=== PATIENT | female | born 1950 | race Caucasian/White ===

== ENCOUNTER → 2019-07-14 15:03 | Outpatient (CLI) | payer MEDICARE, SELFPAY ==
[2019-07-14 15:54] LABS: Alanine Aminotransferase 25 IU/L (9-52); Albumin 4.6 g/dL (3.5-5.0); Albumin Globulin Ratio 1.6 (1.0-2.8); Alkaline Phosphatase 73 U/L (38-126); Aspartate Aminotransferase 39 IU/L (14-36); BUN Creatinine Ratio 33.3 (6-22); Bilirubin Total 0.4 mg/dL (0.2-1.3); Blood Urea Nitrogen 20 mg/dL (7-17); Calcium 10.1 mg/dL (8.4-10.2); Carbon Dioxide 29 mmol/L (22-32); Chloride 99 mmol/L (98-107); Estimated Glomerular Filt Rate > 60.0 mL/min (>60); Globulin 2.9 g/dL (1.7-4.1); Glucose 91 mg/dL (80-110); HEMOLYSIS < 15 (0-50); Potassium 3.9 mmol/L (3.4-5.1); Sodium 139 mmol/L (137-145); Total Protein 7.5 g/dL (6.3-8.2)
[2019-07-14 16:49] LABS: Vitamin D 25 Hydroxy (D3) 43.2 ng/mL (30.0-100.0)
== END ==
PROVIDERS: PCP Physician Assistant; Visit Provider Physician Assistant
DX: G43.909 Migraine, unspecified, not intractable, without status migrainosus (principal); M81.0 Age-related osteoporosis without current pathological fracture
CPT/HCPCS: 36415; 80053; 82306

== ENCOUNTER → 2019-07-15 12:55 | Outpatient (CLI) | payer MEDICARE, SELFPAY ==
--- NOTE | 2019-07-16 15:56 | PM.PFT.1 ---
Pulmonary Function Test Referral & Results Date Patient Seen: 07/15/19 Requesting provider: Katherin Todd Results: The spirometry demonstrates an FVC of 1.83 L which is 56% of predicted. The FEV1 was measured at 1.35 L which is 55% of predicted. The FEV1/FVC ratio was 70 for which is 96% of predicted. Following the administration of bronchodilator there was a 12% improvement in FEV1 and a 55% improvement in FEF 25-75%. Lung volumes show an SVC of 1.91 L which is 62% of predicted. The diffusing capacity was measured at 17.03 which is 63% of predicted. No hemoglobin value was provided, so no correction for potential anemia could be made, if appropriate. The maximum voluntary ventilation was reduced Interpretation: This study demonstrates moderately severe obstructive lung disease with evidence of benefit following bronchodilator based in improvement in FEV1 and more significant improvement in FEF 25-75% suggesting small airway flow improvement There is also [id number] restrictive lung disease based on reduction SVC There is also significant reduction in diffusing capacity, unless patient is anemic
== END ==
PROVIDERS: PCP Physician Assistant; Visit Provider Physician Assistant
DX: R06.09 Other forms of dyspnea (principal); J98.8 Other specified respiratory disorders
CPT/HCPCS: 94060; 94726; 94729

== ENCOUNTER → 2019-07-17 11:44 | Outpatient (CLI) | payer MEDICARE, SELFPAY ==
[2019-07-17 12:59] LABS: Add Manual Diff / Slide Review NO; Basophils Absolute Auto 100 /uL (0-100); Eosinophils Absolute Auto 100 /uL (0-450); Eosinophils Percent Auto 2.6 % (2-4); Hematocrit 39.5 % (36-46); Hemoglobin 13.3 g/dL (12.0-16.0); Lymphocytes Absolute Auto 1700 /uL (1100-4500); Lymphocytes Percent Auto 29.5 % (25-40); Mean Corpuscular HGB Conc 33.6 % (30-36); Mean Corpuscular Hemoglobin 30.1 PG (26-34); Mean Corpuscular Volume 89.5 fL (80-100); Monocytes Absolute Auto 600 /uL (0-900); Monocytes Percent Auto 10.2 % (3-14); Neutrophils Absolute Auto 3300 /uL (1500-7000); Neutrophils Percent Auto 56.7 % (50-75); Platelet Count 226 X10^3/uL (150-400); Red Blood Cell Count 4.41 X10^6/uL (4.0-5.2); Red Cell Distribution Width 13.4 % (11.6-14.8); White Blood Cell Count 5.7 X10^3/uL (4.5-11.0)
[2019-07-17 14:03] LABS: HEMOLYSIS < 15 (0-50); Iron 85 ug/dL (37-170)
[2019-07-17 14:14] LABS: Percent Iron Saturation 27 % (15-50); Total Iron Binding Capacity 311 ug/dL (265-497); Transferrin 257 mg/dL (206-381)
[2019-07-17 14:36] LABS: Thyroid Stimulating Hormone 3.21 uIU/mL (0.47-4.68)
[2019-07-17 14:40] LABS: Ferritin 35.1 ng/mL (11.1-264)
[2019-07-17 14:53] LABS: Vitamin B12 546 pg/mL (239-931)
== END ==
PROVIDERS: PCP Physician Assistant; Visit Provider Physician Assistant
DX: R06.09 Other forms of dyspnea (principal); R53.83 Other fatigue
CPT/HCPCS: 36415; 82607; 82728; 83540; 83550; 84443; 85025

== ENCOUNTER → 2019-07-22 13:03 | Outpatient (CLI) | payer MEDICARE, SELFPAY ==
--- NOTE | 2019-07-22 13:07 | DI.CT.S_ITS ---
PROCEDURE: CT CHEST WO CON INDICATIONS: Abnormal PFTs; dyspnea on exertion TECHNIQUE: Noncontrast 5 mm thick sections acquired from the pulmonary apices to the posterior costophrenic angles. 1 mm lung window, 5 mm thick coronal and sagittal and 7 mm axial MIP reformats were then acquired. For radiation dose reduction, the following was used: automated exposure control, adjustment of mA and/or kV according to patient size. COMPARISON: None. FINDINGS: Image quality: Excellent. Lungs and pleura: Multiple bilateral punctate pulmonary nodules. There is a punctate right middle lobe pulmonary nodule on axial image 169 of series 3. There is a punctate right upper lobe pulmonary nodule on axial image 90 of series 3. There is a punctate pulmonary nodule in the anterior lateral right upper lobe on axial image 104 of series 3. Small filling defects within the subsegmental bronchi of the right upper lobe noted. There are hazy peripheral tree in bud pulmonary opacities of the lateral right middle lobe on axial image 220 of series 3 and of the lingula on axial image 211 of series 3. There is bibasilar atelectasis. No pleural effusions or pneumothorax. Central and peripheral airways are patent and normal in caliber. Mediastinum: Heart size is normal. No mediastinal adenopathy by size criteria. There is mild calcified plaque of the aorta. Ascending thoracic aorta measures at the upper limits of normal in size/borderline ectatic at 3.9 cm. Bones and chest wall: Right greater than left bilateral glenohumeral joint degenerative changes. There are soft tissue exophytic skin nodules of the lateral right upper quadrant of the abdomen measuring up to 1.7 cm in diameter. There are multiple subcentimeter hypoattenuating foci within the right thyroid lobe. Moderate multilevel degenerative changes of the thoracic spine noted, with mild anterior wedging of the T8 vertebral body likely secondary to chronic degenerative change or prior trauma. Abdomen: Punctate splenic calcifications are noted. IMPRESSION: 1. Hazy peripheral pulmonary opacities involving the lateral right middle lobe and lingula are concerning for potential pneumonia versus atelectasis blurred by respiratory motion. Small filling defects within the subsegmental right upper lobe bronchi are most consistent with small aspirated secretions. Clinical correlation recommended. 2. Multiple small sub-4 mm bilateral pulmonary nodules. A followup CT of the chest in 12 months is recommended to demonstrate stability. ACR Lung RADS Category 2. 3. Ascending thoracic aorta measures at the upper limits of normal in size/borderline ectatic at 3.9 cm. Attention on followup exams recommended. 4. Punctate splenic calcifications, a nonspecific finding that can be seen in the setting of chronic granulomatous disease. 5. Multiple hypoattenuating subcentimeter right thyroid nodules. Consider thyroid ultrasound if there is continued clinical concern. 6. Right upper quadrant anterior abdominal wall exophytic skin nodules. Correlation with physical exam recommended. 7. Moderate multilevel degenerative changes of the thoracic spine, with mild anterior wedging of the T8 vertebral body likely secondary to chronic degenerative change or prior trauma. Correlation with point tenderness suggested to exclude acute fracture. Dictated by: Chirag Cuenca M.D. on 07/22/2019 at 14:57 Approved by: Chirag Cuenca M.D. on 07/22/2019 at 15:32
== END ==
PROVIDERS: PCP Physician Assistant; Referring Provider Internal Medicine; Visit Provider Physician Assistant
DX: R94.2 Abnormal results of pulmonary function studies (principal); R06.09 Other forms of dyspnea; D73.89 Other diseases of spleen; E04.2 Nontoxic multinodular goiter; R91.8 Other nonspecific abnormal finding of lung field; R22.2 Localized swelling, mass and lump, trunk; M47.814 Spondylosis without myelopathy or radiculopathy, thoracic region
CPT/HCPCS: 71250

== ENCOUNTER → 2019-08-05 13:49 | Outpatient (CLI) | payer MEDICARE, SELFPAY ==
--- NOTE | 2019-08-05 13:50 | DI.ECHO.S_ITS ---
[facility]---------+ [facility] +---------+ : : [address] [place] [address] : : : : [id number] : : : : Phone: [phone] Echocardiogram Report + + :Name: TODD DOHERTY Study Date: 08/05/2019 Height: 66 in : :[facility] Weight: 140 lb : : Gender: Female BSA: 1.7 m2 : :: 1950 Age: 69 yrs BP: 132/90 mmHg: :Reason For Study: Dyspnea : : Performed By: Carolynn Padron : :Referring: TORY ROGERS : + + Interpretation Summary The left ventricle is normal in size, wall thickness, and systolic function without any focal wall motion abnormalities. The ejection fraction is estimated to be 55-60%. Diastolic parameters suggest a relaxation abnormality of the left ventricle, consistent with probable normal filling pressures. The right ventricle grossly appears normal in size with probable normal systolic function. The right ventricular systolic pressure is estimated to be at least 28 mmHg based on an estimated right atrial pressure of 3 mm Hg. The left atrium is mildly dilated. Right atrial size is normal. There is mild mitral regurgitation. There is no other significant valvular heart disease. The aortic root is normal size. Procedure: A two-dimensional transthoracic echocardiogram with color flow and Doppler was performed. The study quality was technically adequate. There is no prior echocardiogram noted for this patient. The patient was in normal sinus rhythm during the exam. Left Ventricle: The left ventricle is normal in size, wall thickness, and systolic function without any focal wall motion abnormalities. The ejection fraction is estimated to be 55-60%. Diastolic parameters suggest a relaxation abnormality of the left ventricle, consistent with probable normal filling pressures. Right Ventricle: The right ventricle grossly appears normal in size with probable normal systolic function. Atria: The left atrium is mildly dilated. Right atrial size is normal. The interatrial septum is intact with no evidence for an atrial septal defect. Mitral Valve: The mitral valve is grossly normal. There is mild mitral regurgitation. Aortic Valve: The aortic valve is trileaflet. The aortic valve opens well. There is trace aortic regurgitation. Tricuspid Valve: The tricuspid valve leaflets are thin and pliable. There is mild tricuspid regurgitation. The right ventricular systolic pressure is estimated to be at least 28 mmHg based on an estimated right atrial pressure of 3 mm Hg. Pulmonic Valve: The pulmonic valve is normal in structure and function. There is no pulmonic valvular regurgitation. There is no other significant valvular heart disease. Great Vessels: The aortic root is normal size. The dimensions of the ascending aorta are normal. The IVC is of normal diameter and collapses greater than 50% with a sniff. This suggests a low right atrial pressure of 3 mm Hg. Pericardium/ Pleura There is a trivial pericardial effusion noted. There is no pleural effusion. MMode/2D Measurements & Calculations LVIDd: 4.4 cm Ao root diam: 3.7 cm LVIDs: 2.7 cm Aortic Jxn: 3.3 cm FS: 39.1 % asc Aorta Diam: 3.4 cm EPSS: 0.45 cm Ao Arch Diam (Prox Trans): 3.2 cm IVSd: 0.70 cm LVPWd: 0.65 cm LV verdin. diameter/BSA (cm/m^2): 2.6 LV sys. diameter/BSA (cm/m^2): 1.6 LA dimension: 3.5 cm RA long axis: 4.0 cm LA A2 area: 22.7 cm2 RA area: 15.4 cm2 LA A4 area: 18.8 cm2 RA vol: 50.2 ml LA length (vol): 5.3 cm RA : 29.2 ml/m2 LA vol: 68.0 ml IVC diam: 1.4 cm LA vol index: 39.6 ml/m2 RVDd major: 6.1 cm RVD1 (basal): 4.4 cm RVD2 (mid): 3.5 cm Doppler Measurements & Calculations Ao V2 max: 149.7 cm/sec MV E max hakan: 73.3 cm/sec Ao V2 mean: 91.9 cm/sec MV A max hakan: 99.7 cm/sec Ao max P.0 mmHg MV E/A: 0.74 Ao mean P.2 mmHg Med Peak E' Hakan: 4.2 cm/sec Ao V2 VTI: 34.1 cm E/E' med: 17.4 Lat Peak E' Hakan: 5.4 cm/sec E/E' lat: 13.6 E/e' average: 15.5 MV dec time: 0.24 sec MV P1/2t: 69.3 msec TR max hakan: 250.5 cm/sec MV P1/2t max hakan: 72.8 cm/sec TR max P.1 mmHg MVA(P1/2t): 3.2 cm2 PA V2 max: 75.1 cm/sec PA V2 mean: 46.6 cm/sec PA mean P.0 mmHg PA Accel Time: 0.19 sec Reading Physician:05:25 PM
== END ==
PROVIDERS: PCP Physician Assistant; Visit Provider Physician Assistant
DX: I08.1 Rheumatic disorders of both mitral and tricuspid valves (principal); R06.00 Dyspnea, unspecified; R94.2 Abnormal results of pulmonary function studies
CPT/HCPCS: 93306

== ENCOUNTER → 2019-09-13 15:07 | Outpatient (CLI) | payer MEDICARE, SELFPAY ==
--- NOTE | 2019-09-13 15:09 | DI.RAD.S_ITS ---
PROCEDURE: XR CERVICAL SPINE 2V OR 3V INDICATIONS: Neck pain with intermittent parasthesia of index fingers TECHNIQUE: 3 view(s) of the cervical spine were acquired. COMPARISON: None. FINDINGS: Bones: No fractures or dislocations to the C7 level. The lateral masses of C1 appear intact on the odontoid view. No suspicious bony lesions. Diffuse cervical spondylosis and mild diffuse disc space narrowing. Multilevel facet arthropathy levocurvature of the cervical spine Soft tissues: No prevertebral soft tissue swelling. IMPRESSION: Levocurvature Diffuse cervical spondylosis and facet arthropathy Dictated by: Rip Corral M.D. on 09/13/2019 at 17:15 Approved by: Rip Corral M.D. on 09/13/2019 at 17:16
--- NOTE | 2019-09-13 15:09 | DI.RAD.S_ITS ---
PROCEDURE: XR LUMBAR SPINE 2-3V INDICATIONS: LBP with parasthesia of great toes for several months TECHNIQUE: 3 views of the lumbar spine were acquired. COMPARISON: None. FINDINGS: Bones: No fracture or focal osseous destruction. Levoscoliosis. Trace retrolisthesis of L1 on L2, L2 on L3 and L3 on L4. Mild diffuse narrowing of the lumbar disc spaces. Soft tissues: Overlying bowel gas pattern is normal. No suspicious soft tissue calcifications. IMPRESSION: Levoscoliosis Diffuse mild lumbar spondylosis and facet arthropathy Multilevel lumbar spondylolistheses as above Dictated by: Rip Corral M.D. on 09/13/2019 at 17:16 Approved by: Rip Corral M.D. on 09/13/2019 at 17:18
== END ==
PROVIDERS: PCP Physician Assistant; Visit Provider Physician Assistant
DX: M54.5 Low back pain (principal); M54.2 Cervicalgia; M47.812 Spondylosis without myelopathy or radiculopathy, cervical region; M47.816 Spondylosis without myelopathy or radiculopathy, lumbar region; M41.86 Other forms of scoliosis, lumbar region; M43.16 Spondylolisthesis, lumbar region; R20.2 Paresthesia of skin
CPT/HCPCS: 72040; 72100

== ENCOUNTER → 2019-09-21 10:40 | Outpatient (CLI) | payer MEDICARE, SELFPAY ==
--- NOTE | 2019-09-21 10:42 | DI.MRI.S_ITS ---
PROCEDURE: MR LUMBAR SPINE WO CON INDICATIONS: LBP with parasthesia of both great toes TECHNIQUE: Noncontrast sagittal T1 spin echo and T2 fast echo, sagittal STIR, axial T1 and T2 fast spin echo through the lumbar spine. In cases with scoliosis, additional coronal T2 fast spin echo may be performed. COMPARISON: [facility], CR, XR LUMBAR SPINE 2-3V, 09/13/2019, 15:11. FINDINGS: Image quality: Excellent. Alignment and Curvature: There is normal bony alignment. Bone Marrow: There is a Schmorl's node in the superior endplates of L1 and L3. No acute vertebral body compression fractures. Spinal Cord: Conus medullaris terminates at the T12-L1 level. Visualized cord demonstrates normal signal and size. Paraspinous Soft Tissues: No paravertebral masses. L1-L2: Mild loss of disc height and disc desiccation. There is diffuse posterior disc bulge. The central canal is patent. Mild left foraminal stenosis. No right foraminal stenosis. No definitive nerve root impingement. L2-L3: Preserved disc height. Mild disc desiccation. There is diffuse posterior disc bulge. The central canal is patent. No foraminal stenosis. No definitive nerve root impingement. L3-L4: Mild loss of disc height and disc desiccation. There is diffuse posterior disc bulge. The central canal is patent. Mild bilateral foraminal stenosis. No definitive nerve root impingement. L4-L5: Mild loss of disc height and disc signal. There is mild posterior disc bulge. The central canal is patent. Mild bilateral foraminal stenosis. No definitive nerve root impingement. L5-S1: Preserved disc height and disc signal. There is mild posterior disc bulge. Mild bilateral facet arthropathy. The central canal is patent. No foraminal stenosis. No definitive nerve root impingement. IMPRESSION: 1. Multilevel degenerative disc disease and facet arthropathy as described. 2. No central canal stenosis. 3. Mild foraminal stenosis at several levels as described. Dictated by: Wilner Monroy M.D. on 09/21/2019 at 14:12 Approved by: Wilner Monroy M.D. on 09/21/2019 at 14:30
--- NOTE | 2019-09-21 10:42 | DI.MRI.S_ITS ---
PROCEDURE: MR CERVICAL SPINE WO CON INDICATIONS: Chronic neck pain with parasthesia of both index fingers TECHNIQUE: Noncontrast sagittal T1 spin echo and T2 fast spin echo, sagittal STIR, foraminal oblique sagittal T2 fast spin echo, and axial gradient echo or T2 fast spin echo through the cervical spine. COMPARISON: [facility], CR, XR CERVICAL SPINE 2V OR 3V, 09/13/2019, 15:11. FINDINGS: Image quality: Excellent. Alignment and Curvature: There is mild scoliosis. Grade 1 anterolisthesis of C3 on C4. Bone Marrow: Degenerative endplate signal changes. Spinal Cord: Visualized spinal cord has normal size and signal. No cerebellar tonsillar herniation. Paraspinous Soft Tissues: No paravertebral masses. Prevertebral soft tissues are normal in thickness. C2-C3: Normal appearance. C3-C4: Mild loss of disc height and disc desiccation. There is diffuse posterior disc bulge and disc osteophyte complex. The central canal is mildly narrowed. Mild bilateral foraminal stenosis. C4-C5: Mild loss of disc height and disc desiccation. There is diffuse posterior disc bulge and disc osteophyte complex. There is uncovertebral hypertrophy. The central canal is mildly narrowed. Mild bilateral foraminal stenosis. C5-C6: Egto-pf-yabvnrky loss of disc height and disc desiccation. There is diffuse posterior disc bulge and disc osteophyte complex. The central canal is mildly narrowed. Mild bilateral foraminal stenosis. C6-C7: [id number] loss of disc height and disc desiccation. There is diffuse posterior disc bulge and disc osteophyte complex. The central canal is mildly narrowed. No foraminal stenosis. C7-T1: Normal appearance. IMPRESSION: 1. Multilevel degenerative disc disease and facet arthropathy as described. 2. Mild central canal stenosis at C3-C4, C4-C5, C5-C6 and C6-C7. 3. Mild foraminal stenosis at several levels as described. 4. Scoliosis. Dictated by: Wilner Monroy M.D. on 09/21/2019 at 13:02 Approved by: Wilner Monroy M.D. on 09/21/2019 at 17:58
== END ==
PROVIDERS: PCP Physician Assistant; Visit Provider Physician Assistant
DX: M54.5 Low back pain (principal); M51.36 Other intervertebral disc degeneration, lumbar region; M51.37 Other intervertebral disc degeneration, lumbosacral region; M47.817 Spondylosis without myelopathy or radiculopathy, lumbosacral region; M48.061 Spinal stenosis, lumbar region without neurogenic claudication; M50.31 Other cervical disc degeneration, high cervical region; M47.812 Spondylosis without myelopathy or radiculopathy, cervical region; M48.02 Spinal stenosis, cervical region; M41.9 Scoliosis, unspecified; R20.2 Paresthesia of skin
CPT/HCPCS: 72141; 72148

== ENCOUNTER 2019-12-03 20:21 | Emergency (ER) | payer MEDICARE, SELFPAY ==
[2019-12-03 20:33] VITALS: BP 165/98; PULSE 62; RESP 18; TEMP 36.8; O2SAT 99
--- NOTE | 2019-12-03 20:47 | ED_ITS ---
HPI - Abdominal Pain General Chief Complaint: Abdominal Pain Stated Complaint: SEVERE ABD PAIN Time Seen by Provider: 12/03/19 20:46 Source: patient and family Mode of arrival: Wheelchair Limitations: no limitations History of Present Illness HPI narrative: This is a 69-year-old female comes emergency department with complaint of abdominal pain patient states that yesterday and the day before she had diarrhea it was not black or bloody. She developed abdominal pain sort of in the lower abdomen but also radiating around to the back. It is on both sides. She has had nausea and had 1 episode of vomiting. She has not had fevers or chills. She states she is quite uncomfortable. The abdominal pain developed after the diarrhea. She takes propranolol for migraine prophylaxis. She has been diagnosed with restrictive lung disease and states she has stopped the albuterol and Advair because is not the appropriate medications this is a brand new diagnosis. She is also on medication for osteoporosis. She denies any abdominal surgeries. She denies any allergies to medications. No tobacco, occasional alcohol no illicit. She is accompanied by her . Her primary care was soon Perez but she has since the left and she is following with the same office. Related Data Home Medications Medication Instructions Recorded Confirmed Calcium 600 mg 1 tab PO BID 04/14/19 09/13/19 LUTEIN 1 cap PO DAILY 04/14/19 09/13/19 multivitamin 1 tab PO DAILY 04/14/19 09/13/19 fluticasone propionate 230 2 puff INHALATION BID 08/30/19 09/13/19 mcg-salmeterol 21 mcg/actuation HFA inhaler fluticasone propionate 50 2 spray NASAL DAILY 08/30/19 09/13/19 mcg/actuation nasal spray,suspension loratadine 10 mg tablet 10 mg PO DAILY 08/30/19 09/13/19 Previous Rx's Medication Instructions Recorded alendronate 70 mg tablet 70 mg PO QWEEK #12 tab 07/07/19 propranolol 20 mg tablet 20 mg PO BID #180 tab 07/07/19 albuterol sulfate 90 mcg/actuation 2 puff INHALATION Q4-6H PRN #18 07/20/19 aerosol inhaler gram diazepam 5 mg tablet 5 mg PO ONCE PRN #2 tab 09/14/19 nitrofurantoin monohyd/m-cryst 100 mg PO BID #10 cap 12/03/19 [Macrobid] Allergies Allergy/AdvReac Type Severity Reaction Status Date / Time No Known Drug Allergies Allergy Verified 09/13/19 14:18 Review of Systems Review of Systems ROS Unobtainable: All systems reviewed & are unremarkable except as noted in HPI and below Patient History Medical History Actinic keratosis (Chronic ~2014) Chicken pox (Resolved) Fractures (Resolved) Headache (Chronic ~1968) Herpes (Resolved ~1969) Measles (Resolved) Migraines (Chronic ~1977) Mumps (Resolved) Osteoarthritis (Chronic ~2016) Osteopenia (Chronic) Osteoporosis (Chronic ~2005) Shoulder pain (Chronic ~2015) Vision disorder (Chronic) Surgical History Anesthesia (Resolved) History of tonsillectomy (Resolved ~1953) Family History (Updated 05/17/19 @ 17:15 by Stacy Jiménez) Father History of heart disease Mother Cancer Grandfather History of heart disease Grandmother Hypertension Grandfather Cancer Grandmother Cerebral arteriosclerosis Social History Smoking Status: Former smoker Tobacco: How many years used: 20 (on and off) second hand exposure: No alcohol intake: current (one glass of wine maybe 3 to 4 times a month.) substance use type: does not use Smoking Status: Former smoker alcohol intake frequency: a few times a month Substance Use Type: does not use Exam Narrative Exam Narrative: GENERAL: Alert and oriented x three, thin, well-appearing elderly female in moderate distress HEENT: Head normocephalic, atraumatic, EOMI, pupils reactive, face symmetric, moist mucous membranes NECK: Supple, full range of motion CARDIOVASCULAR: Regular rate and rhythm without murmurs, rubs or gallops. RESPIRATORY: Breath sounds equal bilaterally, no wheezes rales or rhonchi. ABDOMEN: Soft, nontender to palpation but patient does appear uncomfortable, nondistended. Normoactive bowel sounds all 4 quadrants. No guarding or rebound, rigidity, no mass : No CVA tenderness EXTREMITIES: Normal range of motion, no clubbing or edema. Neurovascularly intact NEUROLOGICAL: Cranial nerves II through XII grossly intact. Moving all extremities SKIN: Warm, dry, no petechiae, no rashes or lesions. Initial Vital Signs Initial Vital Signs: Vital Signs Temperature 98.2 F 12/03/19 20:33 Pulse Rate 62 12/03/19 20:33 Respiratory Rate 18 12/03/19 20:33 Blood Pressure 165/98 H 12/03/19 20:33 Pulse Oximetry 99 12/03/19 20:33 Course Orders Ordered: ED Orders 12/03/19 21:00 Complete Blood Count AUTO DIFF Stat Comprehensive Metabolic Panel Stat Lipase Stat 12/03/19 21:06 Urine Culture Stat Urine Microscopic Stat 12/03/19 21:21 CT abdomen pelvis w con Stat Discontinued Medications Hydrocodone Bitart/Acetaminophen (Vicodin 5/325 Prepack) 1 bottle MISC SEEINSTR ONE Stop: 12/03/19 23:22 Last Admin: 12/03/19 23:43 Dose: 1 bottle Documented by: CHARLY Sodium Chloride (Normal Saline 0.9%) 1,000 mls @ 150 mls/hr IV CONT SERGIO Last Infusion: 12/03/19 23:30 Dose: 0 mls/hr Documented by: Admin: 12/03/19 21:06 Dose: 150 mls/hr Documented by: AVERY Ketorolac Tromethamine (Toradol) 15 mg IV NOW ONE Stop: 12/03/19 21:01 Last Admin: 12/03/19 21:06 Dose: 15 mg Documented by: AVERY Magnesium Citrate (Magnesium Citrate) 150 ml PO NOW ONE Stop: 12/03/19 23:24 Last Admin: 12/03/19 23:43 Dose: 150 ml Documented by: CHARLY Morphine Sulfate (Morphine) 4 mg IV NOW ONE Stop: 12/03/19 21:55 Last Admin: 12/03/19 22:02 Dose: 4 mg Documented by: AVERY Nitrofurantoin Macrocrystals (Macrobid 100mg Prepack) 1 bottle MISC SEEINSTR ONE Stop: 12/03/19 23:22 Last Admin: 12/03/19 23:43 Dose: 1 bottle Documented by: CHARLY Ondansetron HCl (Zofran) 4 mg IV NOW ONE Stop: 12/03/19 21:01 Last Admin: 12/03/19 21:06 Dose: 4 mg Documented by: AVERY Vital Signs Vital signs: Vital Signs - 8 hr 12/03/19 20:33 12/03/19 23:00 Temperature 98.2 F Pulse Rate 62 51 L Respiratory Rate 18 18 Blood Pressure 165/98 H Blood Pressure [Right Arm] 168/68 H Pulse Oximetry 99 98 MDM - Abdominal Pain Lab Data Attestation: I reviewed the patient's lab results. Result diagrams: 12/03/19 21:00 12/03/19 21:00 Labs: Lab Results 12/03/19 12/03/19 12/03/19 Range/Units 21:00 21:00 21:06 WBC 8.2 (4.5-11.0) X10^3/uL RBC 4.93 (4.0-5.2) X10^6/uL Hgb 15.5 (12.0-16.0) g/dL Hct 45.4 (36-46) % MCV 92.2 (80-100) fL MCH 31.4 (26-34) PG MCHC 34.1 (30-36) % RDW 13.9 (11.6-14.8) % Plt Count 232 (150-400) X10^3/uL Neut % (Auto) 67.4 (50-75) % Lymph % (Auto) 20.1 L (25-40) % Coffey % (Auto) 8.7 (3-14) % Eos % (Auto) 2.7 (2-4) % Baso % (Auto) 1.1 (0-2) % Neut # (Auto) 5500 (1620-2064) /uL Lymph # (Auto) 1600 (6192-0720) /uL [place]offey # (Auto) 700 (0-900) /uL Eos # (Auto) 200 (0-450) /uL Baso # (Auto) 100 (0-100) /uL Sodium 136 L (137-145) mmol/L Potassium 3.7 (3.4-5.1) mmol/L Chloride 98 (98-107) mmol/L Carbon Dioxide 31 (22-32) mmol/L BUN 12 (7-17) mg/dL Creatinine 0.60 (0.52-1.04) mg/dL Estimated GFR > 60.0 (>60) mL/min BUN/Creatinine Ratio 20.0 (6-22) Glucose 108 (80-110) mg/dL Calcium 9.3 (8.4-10.2) mg/dL Total Bilirubin 0.6 (0.2-1.3) mg/dL AST 67 H (14-36) IU/L ALT 53 H (<35) IU/L Alkaline Phosphatase 84 (38-126) U/L Total Protein 8.6 H (6.3-8.2) g/dL Albumin 4.9 (3.5-5.0) g/dL Globulin 3.7 (1.7-4.1) g/dL Albumin/Globulin Ratio 1.3 (1.0-2.8) Lipase 145 (23-300) U/L Urine RBC 0-1/hpf (0-5/HPF) Urine WBC 0-1/hpf (0-5/HPF) Urine Bacteria None seen (None) Ur Culture Indicated? Cult not indicated Point of care testing: Urine Dip Bedside Urine Glucose Negative Bedside Urine Bilirubin - Negative Bedside Urine Ketone - Negative Urine Specific [place] 1.015 Bedside Urine Occult Blood +/- Bedside Urine pH 8.0 Bedside Urine Protein - Negative Bedside Urine Urobilinogen - Negative Bedside Urine Nitrite - Negative Bedside Urine Leukocytes - Negative Esterase Imaging Data CT scan - abdomen/pelvis: Radiologist's Impression: [place] [address] CT Scan Report Signed Patient: Savanna Quintana [facility]#: [id number] : 9Acct:[id number] Age/Sex: 69 / FDate of Service: 12/03/19 Loc: ED Accession Number: [id number] Procedure: CT abdomen pelvis w con Ordering Provider: Mayra Bustillo D.O. PROCEDURE: CT ABDOMEN PELVIS W CON INDICATIONS: abdominal pain, lower to back, diarrhea, n/v TECHNIQUE: After the administration of intravenous contrast, 5 mm thick sections acquired from the diaphragm to the symphysis. 5 mm coronal and sagittal reformats were acquired. For radiation dose reduction, the following was used: automated exposure control, adjustment of mA and/or kV according to patient size. COMPARISON: None. FINDINGS: Image quality: Excellent. ABDOMEN: Lung bases: Lung bases are clear. Heart size is normal. Solid organs: Liver is enlarged. Gallbladder is unremarkable. Biliary system is non dilated. Pancreas enhances normally. Spleen is normal in size and enhancement. No adrenal nodules. Kidneys demonstrate normal size and enhancement, without hydronephrosis. Peritoneum and bowel: Bowel loops demonstrate normal wall thickness and caliber. No free fluid or air. Moderate stool without obstruction. Nodes and vessels: No retroperitoneal or mesenteric adenopathy by size cr iteria. Aorta and inferior vena cava are normal in size. Miscellaneous: No ventral hernias. PELVIS: Genitourinary: Bladder wall thickness is normal. Miscellaneous: No inguinal hernias or adenopathy. Bones: No suspicious bony lesions. No vertebral body compression fractures. IMPRESSION: 1. Markedly enlarged liver. 2. Prominent colonic stool consistent with constipation. No obstruction. Dictated by: Katelyn Jackson M.D. on 12/03/2019 at 22:12 Approved by: Katelyn Jackson M.D. on 12/03/2019 at 22:18 MDM Narrative Medical decision making narrative: Discussed with patient she has had about 10 trips to the bathroom for urination and she states she has been having some frequency home on re-evaluation. She also states that she had diarrhea for a day and a half actually had a very hard drive bowel movement that was small today and did try stool softener without much in lab work 136 and AST of 67 with ALT of 53 but otherwise normal LFTs, renal function and CBC. Urine shows blood with only 1 RBC and 1 WBC on microscopy. Patient's CT does not show any acute findings other than a markedly enlarged liver which is not consistent with her symptoms of lower abdominal and flank pain and prominent colonic stool with no signs of obstruction. With patient's frequency I am concerned about possibly bladder infection and urine culture was sent and patient was started on oral antibiotic Um we also discussed trying some stool softeners and increasing her hydration. She does not feel like there is anything in the rectal vault does not wish for me to check but we did discuss that there feels like there is something low she could try a glycerin suppository. We discussed strict return precautions on patient and are comfortable with the plan Discharge Plan Departure Patient Disposition: Home Clinical Impression: Abdominal pain, Constipation, Urinary frequency Discharge Date/Time: 12/03/19 23:45 Instructions: Constipation, DI for Abdominal Pain-Adult Activity Restrictions/Additional Instructions: Follow-up with your physician on Friday if your symptoms are not improving. Take antibiotics until gone. Prescription was sent to [facility]. I would recommend increasing fluids, making sure your getting plenty of fiber and fruit. You may take MiraLax once or twice daily to help with stooling. You may also use a glycerin suppository if you feel that there is stool close to the rectum. Return to the ER for fevers greater 100.4, rapidly worsening belly or flank pain, persistent vomiting, lightheadedness or passing-out, black or bloody or other new or concerning symptoms. Prescriptions: New nitrofurantoin monohyd/m-cryst [Macrobid] 100 mg capsule 100 mg PO BID Qty: 10 RF: 0 No Action alendronate 70 mg tablet 70 mg PO QWEEK Qty: 12 RF: 3 propranolol 20 mg tablet 20 mg PO BID Qty: 180 RF: 3 albuterol sulfate 90 mcg/actuation HFA aerosol inhaler 2 puff INHALATION Q4-6H PRN (Reason: shortness of breath) Qty: 18 RF: 3 diazepam 5 mg tablet 5 mg PO ONCE PRN (Reason: pre procedural anxiety) Qty: 2 RF: 0 multivitamin tablet 1 tab PO DAILY RF: 0 Calcium 600 mg 1 tab PO BID RF: 0 LUTEIN 1 cap PO DAILY RF: 0 Advair HFA 230-21 mcg/actuation HFA aerosol inhaler 2 puff INHALATION BID RF: 0 fluticasone propionate [Flonase Allergy Relief] 50 mcg/actuation spray,suspension 2 spray NASAL DAILY RF: 0 loratadine [Claritin] 10 mg tablet 10 mg PO DAILY RF: 0 Referrals: Katherin Todd PA-C [Primary Care Provider] -
[2019-12-03] MEDS: ONDANSETRON 4 MG/2 ML INJ IV (21:06)
[2019-12-03] MEDS: SODIUM CHLORIDE 0.9% 1,000 ML 150 ML IV (21:06)
[2019-12-03] MEDS: KETOROLAC 60 MG/2 ML VIAL 15 MG IV (21:06)
[2019-12-03 21:07] LABS: Add Manual Diff / Slide Review NO; Basophils Absolute Auto 100 /uL (0-100); Basophils Percent Auto 1.1 % (0-2); Eosinophils Absolute Auto 200 /uL (0-450); Eosinophils Percent Auto 2.7 % (2-4); Hematocrit 45.4 % (36-46); Hemoglobin 15.5 g/dL (12.0-16.0); Lymphocytes Absolute Auto 1600 /uL (1100-4500); Lymphocytes Percent Auto 20.1 % (25-40); Mean Corpuscular HGB Conc 34.1 % (30-36); Mean Corpuscular Hemoglobin 31.4 PG (26-34); Mean Corpuscular Volume 92.2 fL (80-100); Monocytes Absolute Auto 700 /uL (0-900); Monocytes Percent Auto 8.7 % (3-14); Neutrophils Absolute Auto 5500 /uL (1500-7000); Neutrophils Percent Auto 67.4 % (50-75); Platelet Count 232 X10^3/uL (150-400); Red Blood Cell Count 4.93 X10^6/uL (4.0-5.2); Red Cell Distribution Width 13.9 % (11.6-14.8); White Blood Cell Count 8.2 X10^3/uL (4.5-11.0)
[2019-12-03 21:17] LABS: Alanine Aminotransferase 53 IU/L (<35); Albumin 4.9 g/dL (3.5-5.0); Albumin Globulin Ratio 1.3 (1.0-2.8); Alkaline Phosphatase 84 U/L (38-126); Aspartate Aminotransferase 67 IU/L (14-36); Bilirubin Total 0.6 mg/dL (0.2-1.3); Blood Urea Nitrogen 12 mg/dL (7-17); Calcium 9.3 mg/dL (8.4-10.2); Carbon Dioxide 31 mmol/L (22-32); Chloride 98 mmol/L (98-107); Estimated Glomerular Filt Rate > 60.0 mL/min (>60); Globulin 3.7 g/dL (1.7-4.1); Glucose 108 mg/dL (80-110); HEMOLYSIS 30 (0-50); Lipase 145 U/L (23-300); Potassium 3.7 mmol/L (3.4-5.1); Sodium 136 mmol/L (137-145); Total Protein 8.6 g/dL (6.3-8.2)
[2019-12-03 21:20] LABS: Bacteria Urine None Seen
--- NOTE | 2019-12-03 21:21 | DI.CT.S_ITS ---
PROCEDURE: CT ABDOMEN PELVIS W CON INDICATIONS: abdominal pain, lower to back, diarrhea, n/v TECHNIQUE: After the administration of intravenous contrast, 5 mm thick sections acquired from the diaphragm to the symphysis. 5 mm coronal and sagittal reformats were acquired. For radiation dose reduction, the following was used: automated exposure control, adjustment of mA and/or kV according to patient size. COMPARISON: None. FINDINGS: Image quality: Excellent. ABDOMEN: Lung bases: Lung bases are clear. Heart size is normal. Solid organs: Liver is enlarged. Gallbladder is unremarkable. Biliary system is non dilated. Pancreas enhances normally. Spleen is normal in size and enhancement. No adrenal nodules. Kidneys demonstrate normal size and enhancement, without hydronephrosis. Peritoneum and bowel: Bowel loops demonstrate normal wall thickness and caliber. No free fluid or air. Moderate stool without obstruction. Nodes and vessels: No retroperitoneal or mesenteric adenopathy by size criteria. Aorta and inferior vena cava are normal in size. Miscellaneous: No ventral hernias. PELVIS: Genitourinary: Bladder wall thickness is normal. Miscellaneous: No inguinal hernias or adenopathy. Bones: No suspicious bony lesions. No vertebral body compression fractures. IMPRESSION: 1. Markedly enlarged liver. 2. Prominent colonic stool consistent with constipation. No obstruction. Dictated by: Katelyn Jackson M.D. on 12/03/2019 at 22:12 Approved by: Katelyn Jackson M.D. on 12/03/2019 at 22:18
[2019-12-03 21:40] LABS: Culture Indicated Urine Cult Not Indicated; RBC Urine 0-1/HPF (0-5/HPF); WBC Urine 0-1/HPF (0-5/HPF)
[2019-12-03] MEDS: MORPHINE 4 MG/ML INJ IV (22:02)
[2019-12-03 23:00] VITALS: BP 168/68; PULSE 51; RESP 18; O2SAT 98
[2019-12-03] MEDS: MAGNESIUM CITRATE 300 ML SOLUTION 150 ML PO (23:43)
[2019-12-03] MEDS: HYDROCODONE/ACET 5/325 PREPACK 1 BOTTLE MISC (23:43)
[2019-12-03] MEDS: NITROFURANTOIN 100MG PREPACK 1 BOTTLE MISC (23:43)
== END 2019-12-03 23:45 | disposition home or self-care (01) ==
PROVIDERS: Emergency Provider Emergency Medicine; PCP Physician Assistant
DX: R10.9 Unspecified abdominal pain (principal); K59.00 Constipation, unspecified; R35.0 Frequency of micturition; R11.2 Nausea with vomiting, unspecified
CPT/HCPCS: 36415; 74177; 80053; 81003; 81015; 83690; 85025; 87086; 96361; 96374; 96375; 99284; J1885; J2270; J2405

== ENCOUNTER 2019-12-04 12:05 | Emergency (ER) | payer MEDICARE, SELFPAY ==
[2019-12-04 12:12] VITALS: BP 182/97; PULSE 71; RESP 20; TEMP 36.4; O2SAT 99; BMI 22.1
[2019-12-04] MEDS: SODIUM CHLORIDE 0.9% 1,000 ML 1000 ML IV (12:22)
[2019-12-04] MEDS: ONDANSETRON 4 MG/2 ML INJ IV (12:22)
[2019-12-04 12:45] LABS: Add Manual Diff / Slide Review NO; Basophils Absolute Auto 100 /uL (0-100); Basophils Percent Auto 1.1 % (0-2); Eosinophils Absolute Auto 100 /uL (0-450); Eosinophils Percent Auto 1.5 % (2-4); Hematocrit 45.8 % (36-46); Hemoglobin 15.6 g/dL (12.0-16.0); Lymphocytes Absolute Auto 900 /uL (1100-4500); Lymphocytes Percent Auto 12.6 % (25-40); Mean Corpuscular HGB Conc 34.1 % (30-36); Mean Corpuscular Hemoglobin 31.3 PG (26-34); Mean Corpuscular Volume 91.8 fL (80-100); Monocytes Absolute Auto 600 /uL (0-900); Monocytes Percent Auto 8.3 % (3-14); Neutrophils Absolute Auto 5700 /uL (1500-7000); Neutrophils Percent Auto 76.5 % (50-75); Platelet Count 215 X10^3/uL (150-400); Red Blood Cell Count 4.99 X10^6/uL (4.0-5.2); Red Cell Distribution Width 13.8 % (11.6-14.8); White Blood Cell Count 7.4 X10^3/uL (4.5-11.0)
--- NOTE | 2019-12-04 12:58 | ED.NAVMDI ---
HPI - Nausea/Vomiting/Diarrhea General Chief complaint: Nausea/Vomiting/Diarrhea Stated complaint: N/V- was here last night Time Seen by Provider: 12/04/19 12:07 Source: patient Mode of arrival: Wheelchair Limitations: no limitations History of Present Illness HPI Narrative: 69F former smoker presents with nausea, vomiting that has been persistent since last night. She was seen and evaluated yesterday and had severe lower abdominal pain with a CT scan that was largely unremarkable except for a large amount of stool in her lower colon. She states that her pain is greatly improved but she has had nausea and vomiting since last night. She has of poor appetite and has become a bit dizzy, lightheaded and weak. She was given magnesium citrate to help clear her bowels but was unable to keep it down. She denies fever or chills. She has no dysuria, frequency or urgency. MD complaint: nausea and vomiting Onset (ago): hour(s) Description of Vomiting: food contents Description of Diarrhea: none Associated Abdominal Pain: No Severity: mild Relieving factors: none Exacerbating factors: none Related Data Home Medications Medication Instructions Recorded Confirmed Calcium 600 mg 1 tab PO BID 04/14/19 09/13/19 LUTEIN 1 cap PO DAILY 04/14/19 09/13/19 multivitamin 1 tab PO DAILY 04/14/19 09/13/19 fluticasone propionate 230 2 puff INHALATION BID 08/30/19 09/13/19 mcg-salmeterol 21 mcg/actuation HFA inhaler fluticasone propionate 50 2 spray NASAL DAILY 08/30/19 09/13/19 mcg/actuation nasal spray,suspension loratadine 10 mg tablet 10 mg PO DAILY 08/30/19 09/13/19 Previous Rx's Medication Instructions Recorded alendronate 70 mg tablet 70 mg PO QWEEK #12 tab 07/07/19 propranolol 20 mg tablet 20 mg PO BID #180 tab 07/07/19 albuterol sulfate 90 mcg/actuation 2 puff INHALATION Q4-6H PRN #18 07/20/19 aerosol inhaler gram diazepam 5 mg tablet 5 mg PO ONCE PRN #2 tab 09/14/19 nitrofurantoin monohyd/m-cryst 100 mg PO BID #10 cap 12/03/19 [Macrobid] ondansetron 4 mg PO TID-QID PRN #10 tab 12/04/19 Allergies Allergy/AdvReac Type Severity Reaction Status Date / Time No Known Drug Allergies Allergy Verified 09/13/19 14:18 Review of Systems Constitutional Constitutional: Denies chills, Reports fatigue, Denies fever(s), Denies frequent falls, Denies lethargy and Reports weakness Eyes Eyes: Denies change in vision, Denies eye discharge, Denies irritation and Denies loss of vision ENT Ears, Nose, Mouth, and Throat: Denies change in voice, Denies dizziness, Denies neck pain, Denies sore throat and Denies throat swelling Cardiovascular Cardiovascular: Denies chest pain, Denies irregular heart rhythm, Denies lightheadedness, Denies palpitations, Denies dyspnea, Denies dyspnea on exertion and Denies orthopnea Respiratory Respiratory: Denies cough, Denies dyspnea, Denies dyspnea on exertion and Denies wheezing Gastrointestinal Gastrointestinal: Denies abdominal pain, Denies change in bowel habits, Reports constipation, Denies diarrhea, Reports nausea and Reports vomiting Genitourinary Genitourinary: Denies hematuria, Denies flank pain, Denies urinary incontinence and Denies urinary urgency Musculoskeletal Musculoskeletal: Denies back pain, Denies muscle weakness, Denies neck pain, Denies numbness and Denies tingling Integumentary/Breasts Skin/Breast: Denies pruritus, Denies erythema, Denies rash and Denies wounds Neurologic Neurologic: Denies behavioral changes, Denies confusion, Denies dizziness, Denies frequent falls, Denies loss of vision, Denies numbness, Denies tingling and Reports weakness Psychiatric Psychiatric: Denies anxiety, Denies behavioral changes, Denies confusion, Denies depression, Denies homicidal ideation and Denies suicidal ideation Endocrine Endocrine: Reports fatigue, Denies flushing and Denies palpitations Hematologic/Lymphatic Hematologic/Lymphatic: Denies easy bruising Allergic/Immunologic Allergic/Immunologic: Denies urticaria, Denies throat swelling and Denies wheezing Patient History Medical History Actinic keratosis (Chronic ~2014) Chicken pox (Resolved) Fractures (Resolved) Headache (Chronic ~1968) Herpes (Resolved ~1969) Measles (Resolved) Migraines (Chronic ~1977) Mumps (Resolved) Osteoarthritis (Chronic ~2016) Osteopenia (Chronic) Osteoporosis (Chronic ~2006) Shoulder pain (Chronic ~2016) Vision disorder (Chronic) Surgical History Anesthesia (Resolved) History of tonsillectomy (Resolved ~1953) Family History Father History of heart disease Mother Cancer Grandfather History of heart disease Grandmother Hypertension Grandfather Cancer Grandmother Cerebral arteriosclerosis Social History Smoking Status: Former smoker Tobacco: How many years used: 20 (on and off) second hand exposure: No alcohol intake: current (one glass of wine maybe 3 to 4 times a month.) substance use type: does not use Smoking Status: Former smoker alcohol intake frequency: a few times a month Substance Use Type: does not use Exam Narrative Exam Narrative: GENERAL: [69] year old patient appears stated age. Well-nourished, well-developed patient, in mild distress. HEAD: Atraumatic. Normocephalic. EYES: Pupils equal round and reactive. Extraocular motions intact. No scleral icterus. No injection or drainage. ENT: Nose without bleeding, purulent drainage. Throat without erythema, tonsillar hypertrophy or exudate. Airway patent. NECK: Trachea midline. Non tender CARDIOVASCULAR: Regular rate and rhythm without murmurs, gallops, or rubs. RESPIRATORY: Clear to auscultation. Breath sounds equal bilaterally. No wheezes, rales, or rhonchi. GASTROINTESTINAL: Abdomen soft, non-tender, nondistended. Decreased bowel sounds in all 4 quadrants RECTAL: Firm stool high in her rectal vault. No fissure or hemorrhoid noted. This was performed with patient's permission and female nursing legal billing analyst at the bedside EXTREMITIES: No edema or joint tenderness. BACK: Nontender without deformity or crepitance. No flank tenderness. NEURO: AOx3. SKIN: No rash or erythema of visible areas Initial Vital Signs Initial Vital Signs: Vital Signs Temperature 97.5 F L 12/04/19 12:12 Pulse Rate 71 12/04/19 12:12 Respiratory Rate 20 12/04/19 12:12 Blood Pressure 182/97 H 12/04/19 12:12 Pulse Oximetry 99 12/04/19 12:12 Course Orders Ordered: ED Orders 12/04/19 12:36 Complete Blood Count AUTO DIFF Stat Comprehensive Metabolic Panel Stat Discontinued Medications Bisacodyl (Dulcolax) 10 mg [place] NOW ONE Stop: 12/04/19 12:51 Last Admin: 12/04/19 13:06 Dose: 10 mg Documented by: ZAC Glycerin (Sani-Supp) 1 each [place] NOW ONE Stop: 12/04/19 12:51 Last Admin: 12/04/19 13:07 Dose: 1 each Documented by: ZAC Sodium Chloride (Normal Saline 0.9%) 1,000 mls @ 1,000 mls/hr IV BOLUS ONE Stop: 12/04/19 13:17 Last Infusion: 12/04/19 14:45 Dose: 0 mls/hr Documented by: Admin: 12/04/19 12:22 Dose: 1,000 mls/hr Documented by: ZAC Ketorolac Tromethamine (Toradol) 15 mg IV NOW ONE Stop: 12/04/19 13:17 Last Admin: 12/04/19 13:30 Dose: 15 mg Documented by: ZAC Ondansetron HCl (Zofran) 4 mg IV NOW ONE Stop: 12/04/19 12:19 Last Admin: 12/04/19 12:22 Dose: 4 mg Documented by: ZAC Vital Signs Vital signs: Vital Signs - 8 hr 12/04/19 12:12 12/04/19 13:32 12/04/19 14:00 Temperature 97.5 F L Pulse Rate 71 69 90 Respiratory Rate 20 18 18 Blood Pressure 182/97 H Blood Pressure [Left Arm] 177/87 H 170/70 H Pulse Oximetry 99 99 99 MDM - Nausea/Vomiting/Diarrhea Lab Data Result diagrams: 12/04/19 12:36 12/04/19 12:36 Labs: Lab Results 12/04/19 12/04/19 Range/Units 12:36 12:36 WBC 7.4 (4.5-11.0) X10^3/uL RBC 4.99 (4.0-5.2) X10^6/uL Hgb 15.6 (12.0-16.0) g/dL Hct 45.8 (36-46) % MCV 91.8 (80-100) fL MCH 31.3 (26-34) PG MCHC 34.1 (30-36) % RDW 13.8 (11.6-14.8) % Plt Count 215 (150-400) X10^3/uL Neut % (Auto) 76.5 H (50-75) % Lymph % (Auto) 12.6 L (25-40) % [place] % (Auto) 8.3 (3-14) % Eos % (Auto) 1.5 L (2-4) % Baso % (Auto) 1.1 (0-2) % Neut # (Auto) 5700 (5148-0793) /uL Lymph # (Auto) 900 L (5290-2008) /uL [place] # (Auto) 600 (0-900) /uL Eos # (Auto) 100 (0-450) /uL Baso # (Auto) 100 (0-100) /uL Sodium 134 L (137-145) mmol/L Potassium 4.3 (3.4-5.1) mmol/L Chloride 96 L (98-107) mmol/L Carbon Dioxide 29 (22-32) mmol/L BUN 9 (7-17) mg/dL Creatinine 0.50 L (0.52-1.04) mg/dL Estimated GFR > 60.0 (>60) mL/min BUN/Creatinine Ratio 18.0 (6-22) Glucose 112 H (80-110) mg/dL Calcium 9.4 (8.4-10.2) mg/dL Total Bilirubin 0.8 (0.2-1.3) mg/dL AST 64 H (14-36) IU/L ALT 48 H (<35) IU/L Alkaline Phosphatase 74 (38-126) U/L Total Protein 8.6 H (6.3-8.2) g/dL Albumin 5.0 (3.5-5.0) g/dL Globulin 3.6 (1.7-4.1) g/dL Albumin/Globulin Ratio 1.4 (1.0-2.8) Discharge Plan Departure Patient Disposition: Home Clinical Impression: Acute dehydration Constipation Qualifiers: Constipation type: unspecified constipation type Qualified Code(s): K59.00 - Constipation, unspecified Vomiting Qualifiers: Vomiting type: unspecified Vomiting Intractability: non-intractable Nausea presence: unspecified Qualified Code(s): R11.10 - Vomiting, unspecified Discharge Date/Time: 12/04/19 14:56 Instructions: Constipation (Alternative Therapy), DI for Dehydration -- Adult, DI for Constipation, DI for Vomiting -- Adult Activity Restrictions/Additional Instructions: *You have been diagnosed with [ constipation, dehydration and vomiting ] *What to do: *Take over the counter medications as directed: 1. Metamucil - is a bulk forming laxative and adds fiber 2. Colace - softens your stool 3. Dulcolax suppository - stimulates your bowels *Follow up with your primary care provider in 2-3 days, call for appointment *Return to ER if you should have any new, worsening or concerning symptoms *Drink plenty of water and eat foods high in fiber *Stay as active as you can as this helps move your bowels as well Prescriptions: New ondansetron 4 mg tablet,disintegrating 4 mg PO TID-QID PRN (Reason: nausea and vomiting) Qty: 10 RF: 0 No Action alendronate 70 mg tablet 70 mg PO QWEEK Qty: 12 RF: 3 propranolol 20 mg tablet 20 mg PO BID Qty: 180 RF: 3 albuterol sulfate 90 mcg/actuation HFA aerosol inhaler 2 puff INHALATION Q4-6H PRN (Reason: shortness of breath) Qty: 18 RF: 3 diazepam 5 mg tablet 5 mg PO ONCE PRN (Reason: pre procedural anxiety) Qty: 2 RF: 0 multivitamin tablet 1 tab PO DAILY RF: 0 Calcium 600 mg 1 tab PO BID RF: 0 LUTEIN 1 cap PO DAILY RF: 0 Advair HFA 230-21 mcg/actuation HFA aerosol inhaler 2 puff INHALATION BID RF: 0 fluticasone propionate [Flonase Allergy Relief] 50 mcg/actuation spray,suspension 2 spray NASAL DAILY RF: 0 loratadine [Claritin] 10 mg tablet 10 mg PO DAILY RF: 0 nitrofurantoin monohyd/m-cryst [Macrobid] 100 mg capsule 100 mg PO BID Qty: 10 RF: 0 Referrals: Katherin Todd PA-C [Primary Care Provider] -
[2019-12-04 12:59] LABS: Alanine Aminotransferase 48 IU/L (<35); Albumin Globulin Ratio 1.4 (1.0-2.8); Alkaline Phosphatase 74 U/L (38-126); Aspartate Aminotransferase 64 IU/L (14-36); Bilirubin Total 0.8 mg/dL (0.2-1.3); Blood Urea Nitrogen 9 mg/dL (7-17); Calcium 9.4 mg/dL (8.4-10.2); Carbon Dioxide 29 mmol/L (22-32); Chloride 96 mmol/L (98-107); Estimated Glomerular Filt Rate > 60.0 mL/min (>60); Globulin 3.6 g/dL (1.7-4.1); Glucose 112 mg/dL (80-110); Potassium 4.3 mmol/L (3.4-5.1); Sodium 134 mmol/L (137-145); Total Protein 8.6 g/dL (6.3-8.2)
[2019-12-04] MEDS: BISACODYL 10 MG SUPP PR (13:06)
[2019-12-04] MEDS: GLYCERIN SUPP ADULT 1 SUPP 1 EACH PR (13:07)
[2019-12-04 13:12] LABS: HEMOLYSIS 78 (0-50)
[2019-12-04] MEDS: KETOROLAC 60 MG/2 ML VIAL 15 MG IV (13:30)
[2019-12-04 13:32] VITALS: BP 177/87; PULSE 69; RESP 18; O2SAT 99
--- NOTE | 2019-12-04 13:34 | PC.NURSE ---
+ constipation as seen on CT yesterday. Has been able to drink 1/2 bottle of mag citrate but has been vomiting. Abd is soft. She states she does not feel distended.
[2019-12-04 14:00] VITALS: BP 170/70; PULSE 90; RESP 18; O2SAT 99
--- NOTE | 2019-12-05 09:21 | PC.NURSE ---
Pt called this morning w/ c/o persistent nausea. She is keeping down fluids. She has moved her bowels multiple times. She denies purely liquid stool, black / bloody stool, abdominal distention, abdominal pain. Keeping fluids down and voiding quantity sufficient. Discussed case w/ Dr. Woodson who prescribed Reglan 10 mg po [id number] prn nausea / vomiting. Discussed new med w/ patient & partner who verbalized understanding. Also discussed strict return precautions including abdominal pain/distension/fever/unable to keep down fluids or not passing gas or continued nausea tonight. Both verbalized understanding. Encouraged to continue bowel regimen and to call pcp office in the am (if she does not return tonight) and ask for follow up in 1-2 days.
== END 2019-12-04 14:56 | disposition home or self-care (01) ==
PROVIDERS: Emergency Provider Emergency Medicine; PCP Physician Assistant
DX: E86.0 Dehydration (principal); K59.00 Constipation, unspecified; R11.10 Vomiting, unspecified
CPT/HCPCS: 36415; 80053; 85025; 96361; 96374; 96375; 99284; J1885; J2405

== ENCOUNTER → 2019-12-07 10:02 | Outpatient (CLI) | payer MEDICARE, SELFPAY ==
--- NOTE | 2019-12-07 10:04 | DI.RAD.S_ITS ---
PROCEDURE: XR ACUTE ABDOMEN SERIES INDICATIONS: Nausea; abdominal cramping TECHNIQUE: One view chest and two views of the abdomen were acquired. COMPARISON: None. FINDINGS: Surgical changes and devices: None. Chest: Lungs are clear. Biapical scarring Heart size is normal. No pleural effusions. No pneumoperitoneum. Abdomen: Bowel gas pattern is normal. No suspicious calcifications. Visualized solid organ contours appear normal. Bones: No suspicious bony lesions. Diffuse spondylosis and facet arthropathy. Lateral curvature of the spine IMPRESSION: No specific evidence of bowel obstruction seen at this time although if the patient's symptoms do not improve, continued surveillance with abdominal series radiographs could be performed. Clear lungs. Dictated by: Rip Corral M.D. on 12/07/2019 at 11:57 Approved by: Rip Corral M.D. on 12/07/2019 at 12:03
== END ==
PROVIDERS: PCP Physician Assistant; Referring Provider Physician Assistant; Visit Provider Physician Assistant
DX: K59.00 Constipation, unspecified (principal); R10.9 Unspecified abdominal pain; R11.0 Nausea
CPT/HCPCS: 74022

== ENCOUNTER → 2020-09-25 10:36 | Outpatient (CLI) | payer MEDICARE, SELFPAY ==
--- NOTE | 2020-09-25 | DI.MG.S_ITS ---
BILATERAL DIGITAL SCREENING MAMMOGRAM 3D/2D WITH CAD: 09/25/2020 CLINICAL: Routine screening. Comparison is made to exams dated: 09/02/2018 mammogram, 09/04/2016 mammogram, and 11/24/2013 mammogram - outside location. There are scattered fibroglandular elements in both breasts. Current study was also evaluated with a Computer Aided Detection (CAD) system. There is a biopsy clip in the right breast. No significant masses, calcifications, or other findings are seen in either breast. There has been no significant interval change. IMPRESSION: NEGATIVE There is no mammographic evidence of malignancy. A 1 year screening mammogram is recommended. This exam was interpreted at Station ID: [id number]. NOTE: For mammograms, a report in lay terms will be sent to the patient. Approximately 15% of breast malignancies will not be visualized mammographically. In the management of a palpable breast mass, a negative mammogram must not discourage biopsy of a clinically suspicious lesion. Electronically Signed By: Jesus yee/darrick:09/25/2020 11:33:02 letter sent: Normal Exam ACR BI-RADS Category 1: Negative 3341F
== END ==
PROVIDERS: PCP Physician Assistant; Referring Provider Physician Assistant; Visit Provider Physician Assistant
DX: Z12.31 Encounter for screening mammogram for malignant neoplasm of breast (principal)
CPT/HCPCS: 77063; 77067

== ENCOUNTER → 2020-10-09 12:19 | Outpatient (CLI) | payer OTHER, SELFPAY ==
[2020-10-09 16:07] LABS: Vitamin D 25 Hydroxy (D3) 45.3 ng/mL (30.0-100.0)
[2020-10-10 07:35] LABS: Parathyroid Hormone Int 58 pg/mL (15-65)
[2020-10-11 14:13] LABS: Alkaline Phosphatase, Bone Spe 12.9 ug/L (.)
[2020-10-12 13:11] LABS: N-Telopeptide 8.3 nmol BCE/L (6.2-19.0)
== END ==
PROVIDERS: PCP Physician Assistant; Referring Provider Internal Medicine; Visit Provider Internal Medicine
DX: M81.0 Age-related osteoporosis without current pathological fracture (principal)
CPT/HCPCS: 36415; 82306; 82523; 83937; 83970; 84080

== ENCOUNTER → 2020-10-26 15:13 | Outpatient (CLI) | payer OTHER, SELFPAY ==
--- NOTE | 2020-10-26 | DI.RAD.S_ITS ---
PROCEDURE: XR CHEST 2V INDICATIONS: INTERNAL DULL ACHE UNDER RIGHT BREAST AND IN AXILLA TECHNIQUE: 2 views of the chest were acquired. COMPARISON: None. FINDINGS: Surgical changes and devices: None. Lungs and pleura: The lungs are hyperexpanded consistent with COPD. Lungs are clear. No pleural effusions or pneumothorax. Mediastinum: Mediastinal contours are normal. Heart size is normal. Bones and chest wall: No suspicious bony abnormalities. Soft tissues appear unremarkable. The thoracic spine is kyphotic. IMPRESSION: 1. No acute abnormality of the chest. 2. Hyperexpanded lungs consistent with COPD. Dictated by: Ian Chavez M.D. on 10/26/2020 at 17:16 Approved by: Ian Chavez M.D. on 10/26/2020 at 17:17
== END ==
PROVIDERS: PCP Physician Assistant; Referring Provider Physician Assistant; Visit Provider Physician Assistant
DX: R07.82 Intercostal pain (principal); N64.4 Mastodynia; R91.8 Other nonspecific abnormal finding of lung field
CPT/HCPCS: 71046

== ENCOUNTER → 2020-11-03 14:33 | Outpatient (CLI) | payer MEDICARE, SELFPAY ==
[2020-11-03] MEDS: COVID-19 VACC #1, MRNA(MOD) 100 MCG/0.5 ML VIAL IM (14:48)
== END ==
PROVIDERS: PCP Physician Assistant; Visit Provider Internal Medicine
DX: Z23 Encounter for immunization (principal)
CPT/HCPCS: 0011A; 91301

== ENCOUNTER → 2020-12-01 13:05 | Outpatient (CLI) | payer MEDICARE, SELFPAY ==
[2020-12-01] MEDS: COVID-19 VACC #2, MRNA(MOD) 100 MCG/0.5 ML VIAL IM (13:14)
== END ==
PROVIDERS: PCP Physician Assistant; Visit Provider Internal Medicine
DX: Z23 Encounter for immunization (principal)
CPT/HCPCS: 0012A; 91301

== ENCOUNTER → 2021-04-04 07:12 | Outpatient (CLI) | payer OTHER, SELFPAY ==
[2021-04-04 08:10] LABS: Add Manual Diff / Slide Review NO; Basophils Absolute Auto 100 /uL (0-100); Eosinophils Absolute Auto 100 /uL (0-450); Eosinophils Percent Auto 3.1 % (2-4); Hematocrit 39.7 % (36-46); Hemoglobin 13.1 g/dL (12.0-16.0); Lymphocytes Absolute Auto 1600 /uL (1100-4500); Lymphocytes Percent Auto 37.7 % (25-40); Mean Corpuscular HGB Conc 33.1 % (30-36); Mean Corpuscular Hemoglobin 29.3 PG (26-34); Mean Corpuscular Volume 88.8 fL (80-100); Monocytes Absolute Auto 400 /uL (0-900); Monocytes Percent Auto 9.1 % (3-14); Neutrophils Absolute Auto 2000 /uL (1500-7000); Neutrophils Percent Auto 48.1 % (50-75); Platelet Count 192 X10^3/uL (150-400); Red Blood Cell Count 4.47 X10^6/uL (4.0-5.2); Red Cell Distribution Width 13.4 % (11.6-14.8); White Blood Cell Count 4.1 X10^3/uL (4.5-11.0)
[2021-04-04 08:53] LABS: Alanine Aminotransferase 19 IU/L (<35); Albumin 4.1 g/dL (3.5-5.0); Albumin Globulin Ratio 1.4 (1.0-2.8); Alkaline Phosphatase 71 U/L (38-126); Aspartate Aminotransferase 38 IU/L (14-36); BUN Creatinine Ratio 22.2 (6-22); Bilirubin Total 0.4 mg/dL (0.2-1.3); Blood Urea Nitrogen 14 mg/dL (7-17); Calcium 9.4 mg/dL (8.4-10.2); Carbon Dioxide 30 mmol/L (22-32); Chloride 104 mmol/L (98-107); Cholesterol 189 mg/dL (140-199); Estimated Glomerular Filt Rate > 60.0 mL/min (>60); Glucose 88 mg/dL (80-110); HDL Cholesterol 58 mg/dL (40-60); HEMOLYSIS < 15 (0-50); LDL Cholesterol Calculated 114 mg/dL (<100); Sodium 139 mmol/L (137-145); Total Protein 7.1 g/dL (6.3-8.2); Triglycerides 83 mg/dL (35-150)
[2021-04-04 11:40] LABS: Creatinine Urine Random 22.7 mg/dL
[2021-04-04 11:45] LABS: Microalbumin Urine Random < 0.6 mg/dL (0-1.6)
== END ==
PROVIDERS: PCP Physician Assistant; Referring Provider Physician Assistant; Visit Provider Physician Assistant
DX: I10 Essential (primary) hypertension (principal); Z13.6 Encounter for screening for cardiovascular disorders
CPT/HCPCS: 36415; 80053; 80061; 82043; 82570; 85025

== ENCOUNTER → 2021-05-11 08:06 | Outpatient (CLI) | payer OTHER, SELFPAY ==
[2021-05-11 10:22] LABS: Add Manual Diff / Slide Review NO; Basophils Absolute Auto 0 /uL (0-100); Eosinophils Absolute Auto 100 /uL (0-450); Eosinophils Percent Auto 3.3 % (2-4); Hematocrit 40.9 % (36-46); Hemoglobin 13.7 g/dL (12.0-16.0); Lymphocytes Absolute Auto 1500 /uL (1100-4500); Lymphocytes Percent Auto 36.3 % (25-40); Mean Corpuscular HGB Conc 33.4 % (30-36); Mean Corpuscular Hemoglobin 29.8 PG (26-34); Mean Corpuscular Volume 89.4 fL (80-100); Monocytes Absolute Auto 400 /uL (0-900); Monocytes Percent Auto 9.2 % (3-14); Neutrophils Absolute Auto 2100 /uL (1500-7000); Neutrophils Percent Auto 50.2 % (50-75); Platelet Count 215 X10^3/uL (150-400); Red Blood Cell Count 4.58 X10^6/uL (4.0-5.2); Red Cell Distribution Width 13.6 % (11.6-14.8); White Blood Cell Count 4.1 X10^3/uL (4.5-11.0)
[2021-05-11 10:31] LABS: Alanine Aminotransferase 23 IU/L (<35); Albumin 4.4 g/dL (3.5-5.0); Albumin Globulin Ratio 1.5 (1.0-2.8); Alkaline Phosphatase 78 U/L (38-126); Aspartate Aminotransferase 41 IU/L (14-36); BUN Creatinine Ratio 26.7 (6-22); Bilirubin Total 0.4 mg/dL (0.2-1.3); Blood Urea Nitrogen 16 mg/dL (7-17); Calcium 9.9 mg/dL (8.4-10.2); Carbon Dioxide 31 mmol/L (22-32); Chloride 99 mmol/L (98-107); Cholesterol 197 mg/dL (140-199); Estimated Glomerular Filt Rate > 60.0 mL/min (>60); Glucose 79 mg/dL (80-110); HDL Cholesterol 65 mg/dL (40-60); HEMOLYSIS 23 (0-50); LDL Cholesterol Calculated 116 mg/dL (<100); Potassium 4.1 mmol/L (3.4-5.1); Sodium 136 mmol/L (137-145); Total Protein 7.4 g/dL (6.3-8.2); Triglycerides 82 mg/dL (35-150)
[2021-05-11 10:59] LABS: TSH w/ Reflex to FT4 2.68 uIU/mL (0.47-4.68)
== END ==
PROVIDERS: PCP Nurse Practitioner Family; Referring Provider Nurse Practitioner Family; Visit Provider Nurse Practitioner Family
DX: I10 Essential (primary) hypertension (principal)
CPT/HCPCS: 80053; 80061; 84443; 85025

== ENCOUNTER → 2021-06-08 14:59 | Outpatient (CLI) | payer OTHER, SELFPAY ==
[2021-06-12 11:18] LABS: N-Telopeptide 6.4 nmol BCE/L (6.2-19.0)
== END ==
PROVIDERS: PCP Nurse Practitioner Family; Referring Provider Internal Medicine Endocrinology, Diabetes & Metabolism; Visit Provider Internal Medicine Endocrinology, Diabetes & Metabolism
DX: M80.00XD Age-related osteoporosis with current pathological fracture, unspecified site, subsequent encounter for fracture with routine healing (principal)
CPT/HCPCS: 36415; 82523

== ENCOUNTER → 2021-08-10 14:19 | Outpatient (CLI) | payer MEDICARE, SELFPAY ==
[2021-08-10] MEDS: COVID-19 VACC #3, MRNA(MOD) 50 MCG/0.25 ML VIAL IM (14:23)
== END ==
PROVIDERS: PCP Nurse Practitioner Family; Visit Provider Internal Medicine
DX: Z23 Encounter for immunization (principal)
CPT/HCPCS: 0013A; 91301

== ENCOUNTER → 2022-06-12 15:15 | Outpatient (CLI) | payer MEDICARE, SELFPAY ==
[2022-06-12 17:42] LABS: Add Manual Diff / Slide Review NO; Basophils Absolute Auto 0 /uL (0-100); Basophils Percent Auto 0.8 % (0-2); Eosinophils Absolute Auto 100 /uL (0-450); Eosinophils Percent Auto 1.9 % (2-4); Hemoglobin 12.7 g/dL (12.0-16.0); Lymphocytes Absolute Auto 1200 /uL (1100-4500); Mean Corpuscular HGB Conc 35.2 % (30-36); Mean Corpuscular Hemoglobin 30.6 PG (26-34); Mean Corpuscular Volume 86.9 fL (80-100); Monocytes Absolute Auto 400 /uL (0-900); Monocytes Percent Auto 6.8 % (3-14); Neutrophils Absolute Auto 4100 /uL (1500-7000); Neutrophils Percent Auto 69.5 % (50-75); Platelet Count 216 X10^3/uL (150-400); Red Blood Cell Count 4.14 X10^6/uL (4.0-5.2); White Blood Cell Count 5.9 X10^3/uL (4.5-11.0)
[2022-06-12 17:58] LABS: BUN Creatinine Ratio 24.2 (6-22); Blood Urea Nitrogen 15 mg/dL (7-17); Calcium 9.3 mg/dL (8.4-10.2); Carbon Dioxide 28 mmol/L (22-32); Chloride 98 mmol/L (98-107); Estimated Glomerular Filt Rate > 60 mL/min (>60); Glucose 118 mg/dL (80-110); HEMOLYSIS < 15 (0-50); Potassium 4.4 mmol/L (3.4-5.1); Sodium 136 mmol/L (137-145)
[2022-06-12 18:38] LABS: TSH w/ Reflex to FT4 1.61 uIU/mL (0.47-4.68)
[2022-06-18 17:17] LABS: C-Telopeptide, Serum 56 pg/mL (.)
== END ==
PROVIDERS: PCP Nurse Practitioner Family; Referring Provider Internal Medicine Endocrinology, Diabetes & Metabolism; Visit Provider Internal Medicine Endocrinology, Diabetes & Metabolism
DX: M81.0 Age-related osteoporosis without current pathological fracture (principal)
CPT/HCPCS: 36415; 80048; 82306; 82523; 84443; 85025

== ENCOUNTER → 2022-09-18 14:08 | Outpatient (CLI) | payer MEDICARE, SELFPAY ==
--- NOTE | 2022-09-18 | DI.MG.S_ITS ---
BILATERAL DIGITAL SCREENING MAMMOGRAM 3D/2D WITH CAD: 09/18/2022 CLINICAL: Routine screening. Comparison is made to exams dated: 09/25/2020 mammogram - [facility], 09/02/2018 mammogram, and 09/04/2016 mammogram - outside location. There are scattered areas of fibroglandular density in both breasts (category b / 25%-50% glandular tissue). Current study was also evaluated with a Computer Aided Detection (CAD) system. There is a biopsy clip in both breasts. No significant masses, calcifications, or other findings are seen in either breast. There has been no significant interval change. IMPRESSION: NEGATIVE There is no mammographic evidence of malignancy. A 1 year screening mammogram is recommended. Based on the Tyrer Cuzick model (a risk assessment model) the patient's lifetime risk is 3.4% and her 10 year risk is 2.8%. According to the ACR, ACS, and NCCN guidelines, an annual breast MRI exam along with mammogram is recommended if the patient's lifetime risk is 20% or greater. This exam was interpreted at Station ID: [id number]. NOTE: For mammograms, a report in lay terms will be sent to the patient. Approximately 15% of breast malignancies will not be visualized mammographically. In the management of a palpable breast mass, a negative mammogram must not discourage biopsy of a clinically suspicious lesion. Electronically Signed By: Ian frazier/darrick:09/18/2022 15:36:45 letter sent: Normal Exam ACR BI-RADS Category 1: Negative 3341F
== END ==
PROVIDERS: PCP Nurse Practitioner Family; Referring Provider Nurse Practitioner Family; Visit Provider Nurse Practitioner Family
DX: Z12.31 Encounter for screening mammogram for malignant neoplasm of breast (principal)
CPT/HCPCS: 77063; 77067

== ENCOUNTER → 2022-11-26 15:02 | Outpatient (CLI) | payer MEDICARE, SELFPAY ==
[2022-11-26 18:10] LABS: Albumin 4.4 g/dL (3.5-5.0); Blood Urea Nitrogen 17 mg/dL (7-17); Calcium 9.3 mg/dL (8.4-10.2); Carbon Dioxide 30 mmol/L (22-32); Chloride 97 mmol/L (98-107); Estimated Glomerular Filt Rate > 60 mL/min (>60); Glucose 77 mg/dL (80-110); HEMOLYSIS < 15 (0-50); Potassium 3.8 mmol/L (3.4-5.1); Sodium 136 mmol/L (137-145)
== END ==
PROVIDERS: PCP Nurse Practitioner Family; Referring Provider Internal Medicine Endocrinology, Diabetes & Metabolism; Visit Provider Internal Medicine Endocrinology, Diabetes & Metabolism
DX: M81.0 Age-related osteoporosis without current pathological fracture (principal)
CPT/HCPCS: 36415; 80069

== ENCOUNTER → 2023-05-28 15:07 | Outpatient (CLI) | payer MEDICARE, SELFPAY ==
--- NOTE | 2023-05-28 15:12 | DI.RAD.S_ITS ---
PROCEDURE: XR KNEE LT 4V INDICATIONS: bilateral knee pain TECHNIQUE: 4 views of the knee were acquired. COMPARISON: None. FINDINGS: Bones: No fractures or dislocations. No suspicious bony lesions. Mild joint space narrowing and marginal spurring, most pronounced medially. Soft tissues: No joint effusion. No suspicious soft tissue calcifications. IMPRESSION: No acute osseous abnormalities. Mild osteoarthritic changes. Dictated by: Alexi Baca M.D. on 05/28/2023 at 16:40 Approved by: Alexi Baca M.D. on 05/28/2023 at 16:41
--- NOTE | 2023-05-28 15:12 | DI.RAD.S_ITS ---
PROCEDURE: XR KNEE RT 4V INDICATIONS: bilateral knee pain TECHNIQUE: 4 views of the knee were acquired. COMPARISON: None. FINDINGS: Bones: No fractures or dislocations. No suspicious bony lesions. Mild osteoarthritic changes, with mild medial joint space narrowing. Soft tissues: No joint effusion. No suspicious soft tissue calcifications. IMPRESSION: No acute osseous abnormality. Mild osteoarthritic changes. Dictated by: Alexi Baca M.D. on 05/28/2023 at 16:41 Approved by: Alexi Baca M.D. on 05/28/2023 at 16:42
== END ==
PROVIDERS: PCP Nurse Practitioner Family; Referring Provider Nurse Practitioner Family; Visit Provider Nurse Practitioner Family
DX: M25.561 Pain in right knee (principal); M25.562 Pain in left knee; G89.29 Other chronic pain
CPT/HCPCS: 73564

== ENCOUNTER → 2023-08-21 07:13 | Outpatient (CLI) | payer MEDICARE, SELFPAY ==
[2023-08-21 09:26] LABS: Cholesterol 200 mg/dL (140-199); HDL Cholesterol 87 mg/dL (40-60); LDL Cholesterol Calculated 100 mg/dL (<100); Triglycerides 64 mg/dL (35-150); VLDL Cholesterol Calculated 13 mg/dL (2-30)
[2023-08-21 09:42] LABS: TSH w/ Reflex to FT4 3.15 uIU/mL (0.47-4.68)
== END ==
PROVIDERS: PCP Nurse Practitioner Family; Referring Provider Nurse Practitioner Family; Visit Provider Nurse Practitioner Family
DX: I10 Essential (primary) hypertension (principal)
CPT/HCPCS: 36415; 80061; 84443

== ENCOUNTER → 2023-09-25 14:20 | Outpatient (CLI) | payer MEDICARE, SELFPAY ==
--- NOTE | 2023-09-25 14:21 | DI.MG.S_ITS ---
BILATERAL DIGITAL SCREENING MAMMOGRAM 3D/2D WITH CAD: 09/25/2023 CLINICAL: Routine screening. Comparison is made to exams dated: 09/18/2022 mammogram, 09/25/2020 mammogram - , and 09/02/2018 mammogram - outside location. Both breasts are heterogeneously dense, which may obscure small masses (category c / 51-75% glandular tissue). Current study was also evaluated with a Computer Aided Detection (CAD) system. There is a biopsy clip in both breasts. No significant masses, calcifications, or other findings are seen in either breast. There has been no significant interval change. IMPRESSION: BENIGN There is no mammographic evidence of malignancy. A 1 year screening mammogram is recommended. Based on the Tyrer Cuzick model (a risk assessment model) the patient's lifetime risk is 5.7% and her 10 year risk is 5.1%. According to the ACR, ACS, and NCCN guidelines, an annual breast MRI exam along with mammogram is recommended if the patient's lifetime risk is 20% or greater. This exam was interpreted at Station ID: [id number]. NOTE: For mammograms, a report in lay terms will be sent to the patient. Approximately 15% of breast malignancies will not be visualized mammographically. In the management of a palpable breast mass, a negative mammogram must not discourage biopsy of a clinically suspicious lesion. Electronically Signed By: Pavan brandon/darrick:09/25/2023 15:01:01 letter sent: Normal Exam ACR BI-RADS Category 2: Benign Finding(s) 3342F
== END ==
PROVIDERS: PCP Nurse Practitioner Family; Referring Provider Nurse Practitioner Family; Visit Provider Nurse Practitioner Family
DX: Z12.31 Encounter for screening mammogram for malignant neoplasm of breast (principal)
CPT/HCPCS: 77063; 77067

== ENCOUNTER 2023-12-23 09:14 | Outpatient (CLI) | payer MEDICARE, SELFPAY ==
[2023-12-23] VITALS (9 sets, daily range): BP systolic 109–154; BP diastolic 69–83; PULSE 64–99; RESP 9–18; TEMP 36.1; O2SAT 95–100
--- NOTE | 2023-12-23 09:45 | DI.RAD.S_ITS ---
PROCEDURE: PAIN C/T INTERLAMINAR INJECT INDICATIONS: spinal stenosis COMPARISON: None. FINDINGS: Fluoroscopic spot filming was performed to verify placement of spinal needles at the bilateral C6-7 level(s), as labeled on the films. Appropriate location(s) of the needle tip(s) was confirmed by injection of iodinated contrast. IMPRESSION: Fluoroscopic support for bilateral C6-7 transforaminal epidural steroid injection. Please see separate procedure note for further details. Dictated by: Jesus Bowen M.D. on 12/23/2023 at 12:08 Approved by: Jesus Bowen M.D. on 12/23/2023 at 12:08
[2023-12-23] MEDS: MIDAZOLAM 2 MG/2 ML VIAL IV (10:02)
[2023-12-23] MEDS: iopamidoL 15 ML VIAL 3 ML INJ (10:08)
[2023-12-23] MEDS: DEXAMETHASONE 10 MG/ML VIAL 20 MG INJ (10:09)
[2023-12-23] MEDS: BUPIVACAINE 0.25% (PF) VIAL 2 ML INJ (10:09)
--- NOTE | 2023-12-23 10:31 | P.PCN_ITS ---
Date/Time/Diagnoses Date of procedure: 12/23/23 Time of procedure: 10:31 Pre-procedure diagnosis: 1. CERVICAL STENOSIS, 2. CERVICAL HNP WITH UPPER EXTREMITY RADICULAR FEATURES Post-procedure diagnosis: same Procedure Notes Procedure: 1. FLUORSCOPICALLY GUIDED CONTRAST CONTROLLED INTERLAMINAR EPIDURAL STEROID INJECTION - C6/7 TL BEKA Indications: Chrissy is referred by Mary VIDEO GAME TECHNICIAN for treatment of Cervical HNP with Upper Extremity Paresthesias. Physician: William Bledsoe Total Fluoroscopy time (seconds): 23 Total sedation minutes: 25 Complications: none Procedure in detail & Post-procedure care: FINDINGS Cervical Stenosis due to disc deterioration and nerve root irritation and nerve root irritation DESCRIPTION OF PROCEDURE Fluoroscopically guided, contrast-controlled C6/7 translaminar epidural steroid injection with conscious sedation. Following review of allergy and review of potential side effects and complications, including, but not necessarily limited to, infection, allergic reaction, local tissue breakdown, temporary as well as permanent nerve injury, stroke, paralysis, and possible , the patient indicated that patient understood and agreed to proceed. An informed consent document was signed by the patient, witnessed by a nurse, and placed in the patient's chart. Additionally, other treatment options including modalities, medications, and physical therapy were reviewed with the patient. After review of previous anaesthesic history and IV conscious sedation the patient was deemed safe to proceed with today?s procedure with IV conscious s edation as ASA class II designation. Safety time-out was performed to confirm patient ID, procedure to be performed and site of procedure. IV sedation was accomplished with a combination of 2mg of Versed administered by the RN after DO order, titrated to patient comfort during the course of the procedure while the patient remained responsive to all verbal commands. In the prone position, following sterile prep and drape of the cervical region, the C6/7 translaminar space was identified fluoroscopically. The skin was anesthetized via a 25-gauge 1.5-inch needle with 1% lidocaine solution. At this point, a 25-gauge, 2.5-inch short bevel spinal needle was atraumatically introduced and advanced under fluoroscopic guidance into epidural space at the C6/7 translaminar space. Depth was confirmed on lateral view. Radiological data, including multiple fluoroscopic views of the cervical spine, reveal a spinal needle at the C6/7 translaminar space. Lateral views then show placement of the needle in the epidural space. Subsequent views show contrast material flowing superiorly and inferiorly in the epidural space. DSA fluoroscopy with live contrast injection, once again, confirmed no vascular or intrathecal uptake. At this point, using loss of resistance technique with saline and air, the epidural space was entered. Following negative aspiration, injection of approximately 1.5 cc of [id number]-200 with live fluoroscopy in the AP view confirmed epidural flow in the epidural space without vascular or intrathecal uptake observed. Subsequently, a test dose of 1 cc of 1% lidocaine solution was injected and patient was observed for two minutes without signs or symptoms of complications, including abdominal pain, shortness of breath, bilateral upper or lower extremity weakness, nausea and vomiting, prior to steroid injection. At this point, 2cc or 20mg of dexamethasone was then injected without incident. The patient tolerated the procedure well without signs or symptoms of complications prior to being transferred to the recovery area for further monitoring, The patient was then transferred to the recovery area where they were observed for an appropriate period of time after the injection. The patient reported a VAS score of 6 prior to the procedure and a post-procedure VAS of 0. POST OP INSTRUCTIONS The patient was provided a Pain Log to continue to record their response to the target-specific procedure prior to follow-up visit with the referring provider. Additionally, specific post-injection care instructions and a contact number to our office were provided if concerns arise regarding possible complications associated with the procedure are suspected.
== END 2023-12-23 10:45 | disposition home or self-care (01) ==
PROVIDERS: PCP Nurse Practitioner Family; Referring Provider Physical Medicine & Rehabilitation; Visit Provider Physical Medicine & Rehabilitation
DX: M48.02 Spinal stenosis, cervical region (principal); M50.123 Cervical disc disorder at C6-C7 level with radiculopathy
CPT/HCPCS: 62321; 99152; 99153; J1100; J2250; J3490

== ENCOUNTER → 2024-03-10 08:36 | Outpatient (CLI) | payer MEDICARE, SELFPAY ==
--- NOTE | 2024-03-10 08:37 | DI.RAD.S_ITS ---
PROCEDURE: XR CHEST 2V INDICATIONS: Cough TECHNIQUE: 2 views of the chest were acquired. COMPARISON: [facility], CR, XR CHEST 2V, 10/26/2020, 15:26. FINDINGS: Surgical changes and devices: None. Lungs and pleura: Lungs are clear. No pleural effusions or pneumothorax. Mediastinum: Mediastinal contours are normal. Heart size is normal. Bones and chest wall: No suspicious bony abnormalities. Scoliosis. Soft tissues appear unremarkable. IMPRESSION: No acute cardiopulmonary abnormality is seen. Dictated by: Ranjeet Leyva M.D. on 03/10/2024 at 10:07 Approved by: Ranjeet Leyva M.D. on 03/10/2024 at 10:08
== END ==
PROVIDERS: PCP Nurse Practitioner Family; Referring Provider Nurse Practitioner Family; Visit Provider Nurse Practitioner Family
DX: R05.9 Cough, unspecified (principal)
CPT/HCPCS: 71046

== ENCOUNTER → 2024-08-14 15:27 | Outpatient (CLI) | payer MEDICARE, SELFPAY ==
--- NOTE | 2024-08-14 15:28 | DI.RAD.S_ITS ---
PROCEDURE: XR CERVICAL SPINE 4V OR 5V INDICATIONS: NECK PAIN TECHNIQUE: 5 views of the cervical spine acquired. COMPARISON: [facility], CR, XR CERVICAL SPINE 2V OR 3V, 09/13/2019, 15:11. FINDINGS: Bones: No fractures or dislocations to the T1 level. Oblique images demonstrate no bony foraminal stenoses. There is mild loss of the normal disc height with osteophytosis at C3-C5. Soft tissues: No prevertebral soft tissue swelling. IMPRESSION: Mild degenerative disc disease at C3-C5 without acute abnormality. Dictated by: Yvonne Roth M.D. on 08/14/2024 at 15:21 Approved by: Yvonne Roth M.D. on 08/14/2024 at 15:22
--- NOTE | 2024-08-14 15:28 | DI.RAD.S_ITS ---
PROCEDURE: XR LUMBAR SPINE MIN 4V INDICATIONS: BACK PAIN TECHNIQUE: 5 views of the lumbar spine were acquired, including bilateral oblique views. COMPARISON: [facility], , XR LUMBAR SPINE 2-3V, 09/13/2019, 15:11. FINDINGS: Bones: 5 nonrib-bearing vertebrae are present. There is the the curvature centered at L2. There is also grade 1 retrolisthesis of L1 on L2. No vertebral body compression fractures. There is minimal osteophytosis with endplate sclerosis and disc space narrowing at this level as well. Mineralization is normal. Soft tissues: Overlying bowel gas pattern is normal. No suspicious soft tissue calcifications. Oblique images: No pars defects. IMPRESSION: Levoscoliosis with degenerative disc disease at L1-L2. Dictated by: Yvonne Roth M.D. on 08/14/2024 at 15:23 Approved by: Yvonne Roth M.D. on 08/14/2024 at 15:26
== END ==
PROVIDERS: PCP Nurse Practitioner Family; Referring Provider Physical Medicine & Rehabilitation; Visit Provider Physical Medicine & Rehabilitation
DX: M47.22 Other spondylosis with radiculopathy, cervical region (principal); M50.11 Cervical disc disorder with radiculopathy, high cervical region; M48.062 Spinal stenosis, lumbar region with neurogenic claudication; M51.360 Other intervertebral disc degeneration, lumbar region with discogenic back pain only; M41.9 Scoliosis, unspecified
CPT/HCPCS: 72050; 72110

== ENCOUNTER → 2024-09-09 12:48 | Outpatient (CLI) | payer MEDICARE, SELFPAY | LOC: PHYS 12:49 | PROVIDERS: Family Provider Nurse Practitioner Family; PCP Nurse Practitioner Family; Referring Provider Physical Medicine & Rehabilitation; Visit Provider Physical Medicine & Rehabilitation | DX: M48.062 Spinal stenosis, lumbar region with neurogenic claudication (principal); G62.9 Polyneuropathy, unspecified | CPT/HCPCS: 95886; 95911 ==

== ENCOUNTER → 2024-09-23 13:48 | Outpatient (CLI) | payer MEDICARE, SELFPAY ==
--- NOTE | 2024-09-23 | DI.MRI.S_ITS ---
PROCEDURE: MR LUMBAR SPINE WO CON INDICATIONS: L5 Radiculopathy TECHNIQUE: Noncontrast sagittal T1 spin echo and T2 fast echo, sagittal STIR, and T2 fast spin echo through the lumbar spine. In cases with scoliosis, additional coronal T2 fast spin echo may be performed. COMPARISON: [facility], MR, MR LUMBAR SPINE WO CON, 09/21/2019, 11:53. [facility], CR, XR LUMBAR SPINE MIN 4V, 08/14/2024, 15:46. [facility], CR, XR LUMBAR SPINE 2-3V, 09/13/2019, 15:11. FINDINGS: Image quality: This examination is limited by involuntary motion artifact. Alignment and Curvature: There is [id number] levoconvex thoracolumbar scoliosis. There is minimal retrolisthesis seen at the L1-L2 level. Bone Marrow: Marrow is of normal overall signal. No acute vertebral body compression fractures. Spinal Cord: Conus medullaris terminates at the L1 level. Visualized cord demonstrates normal signal and size. Paraspinous Soft Tissues: No paravertebral masses. T12-L1: Normal appearance. L1-L2: Moderate loss of disc height and disc signal can be seen on the right-side. Moderate disc bulge is seen, with a central disc protrusion. There is mild right-sided and no left-sided neural foraminal narrowing. Mild central canal narrowing is seen. These imaging findings have progressed compared to the prior study. L2-L3: The disc height is well-preserved. Loss of disc signal is seen at this level. Mild generalized disc bulge is seen. No neural foraminal narrowing or central canal narrowing can be seen. No significant change compared to the prior. L3-L4: The disc height is well-preserved. Loss of disc signal is seen at this level. Reactive marrow endplate changes are seen, which are hyperintense on T1-weighted and T2-weighted imaging and most consistent with fatty metaplasia (Modic type II changes). Mild generalized disc bulge is seen. There is a superimposed central disc protrusion. Mild facet joint hypertrophy is seen. No significant neural foraminal or central canal narrowing can be seen. When comparison is made with the prior images, these findings are similar. L4-L5: The disc height is well-preserved. Loss of disc signal is seen at this level. Mild disc bulge is seen, which is eccentric to the right. Moderate facet joint hypertrophy is seen. There is [id number] left-sided and mild right-sided neural foraminal narrowing. Mild central canal narrowing is seen. These imaging findings have progressed compared to the prior study. L5-S1: The disc height is well-preserved. Loss of disc signal is seen at this level. Mild generalized disc bulge is seen. Mild to moderate facet hypertrophy can be seen. No significant neural foraminal or central canal narrowing can be seen. No significant change from the prior. IMPRESSION: Multiple levels of lumbar spine degenerative change can be seen, which have progressed at a few levels compared to 2019. [id number] levoconvex scoliosis. Dictated by: Buddy Butler M.D. on 09/23/2024 at 16:38 Approved by: Buddy Butler M.D. on 09/23/2024 at 16:42
== END ==
LOC: MRI 13:48
PROVIDERS: Family Provider Nurse Practitioner Family; PCP Nurse Practitioner Family; Referring Provider Physical Medicine & Rehabilitation; Visit Provider Physical Medicine & Rehabilitation
DX: M48.062 Spinal stenosis, lumbar region with neurogenic claudication (principal); M47.816 Spondylosis without myelopathy or radiculopathy, lumbar region; M47.817 Spondylosis without myelopathy or radiculopathy, lumbosacral region; M41.9 Scoliosis, unspecified
CPT/HCPCS: 72148

== ENCOUNTER → 2024-09-27 14:33 | Outpatient (CLI) | payer MEDICARE, SELFPAY ==
--- NOTE | 2024-09-27 14:34 | DI.MG.S_ITS ---
BILATERAL DIGITAL SCREENING MAMMOGRAM 3D/2D WITH CAD: 09/27/2024 CLINICAL: Routine screening. Comparison is made to exams dated: 09/25/2023 mammogram, 09/18/2022 mammogram, and 09/25/2020 mammogram - [facility]. The breasts are heterogeneously dense, which may obscure small masses (category c / 51-75% glandular tissue). Current study was also evaluated with a Computer Aided Detection (CAD) system. There is a biopsy clip in both breasts. No significant masses, calcifications, or other findings are seen in either breast. There has been no significant interval change. IMPRESSION: BENIGN There is no mammographic evidence of malignancy. A 1 year screening mammogram is recommended. Based on the Tyrer Cuzick model (a risk assessment model) the patient's lifetime risk is 5.2% and her 10 year risk is 5.2%. According to the ACR, ACS, and NCCN guidelines, an annual breast MRI exam along with mammogram is recommended if the patient's lifetime risk is 20% or greater. This exam was interpreted at Station ID: [id number]. NOTE: For mammograms, a report in lay terms will be sent to the patient. Approximately 15% of breast malignancies will not be visualized mammographically. In the management of a palpable breast mass, a negative mammogram must not discourage biopsy of a clinically suspicious lesion. Electronically Signed By: Pavan brandon/darrick:09/28/2024 11:31:07 letter sent: Normal Exam ACR BI-RADS Category 2: Benign
== END ==
PROVIDERS: Family Provider Nurse Practitioner Family; PCP Nurse Practitioner Family; Referring Provider Nurse Practitioner Family; Visit Provider Nurse Practitioner Family
DX: Z12.31 Encounter for screening mammogram for malignant neoplasm of breast (principal); R92.333 Mammographic heterogeneous density, bilateral breasts
CPT/HCPCS: 77063; 77067

== ENCOUNTER 2024-11-25 09:41 | Outpatient (CLI) | payer OTHER, SELFPAY ==
[2024-11-25] VITALS (8 sets, daily range): BP systolic 92–137; BP diastolic 58–76; PULSE 56–68; RESP 14–18; TEMP 36.6; O2SAT 96–100
--- NOTE | 2024-11-25 09:44 | DI.RAD.S_ITS ---
PROCEDURE: PAIN L/S TRANSFORAMINAL INJECT INDICATIONS: Left L4-5 transforaminal BEKA COMPARISON: None. FINDINGS/IMPRESSION: Fluoroscopic spot filming was performed to verify placement of spinal needle at the left L4-5 level, as labeled on the films. Appropriate location of the needle tip was confirmed by injection of iodinated contrast. Approved by: Damir Navarro M.D. on 11/25/2024 at 19:20
[2024-11-25] MEDS: MIDAZOLAM 2 MG/2 ML VIAL IV (10:37)
[2024-11-25] MEDS: BETAMETHASONE 30 MG/5 ML MDV 12 MG INJ (10:41)
[2024-11-25] MEDS: iopamidoL 15 ML VIAL 3 ML INJ (10:41)
[2024-11-25] MEDS: BUPIVACAINE 0.25% (PF) VIAL 2 ML INJ (10:41)
[2024-11-25] MEDS: DEXAMETHASONE 10 MG/ML VIAL INJ (10:41)
--- NOTE | 2024-11-25 10:50 | P.PCN_ITS ---
Date/Time/Diagnoses Date of procedure: 11/25/24 Time of procedure: 10:50 Pre-procedure diagnosis: 1. FORAMINAL STENOSIS WITH LE SYMPTOMS Post-procedure diagnosis: same Procedure Notes Procedure: 1. FLUOROSCOPICALLY GUIDED CONTRAST CONTROLLED TRANSFORAMINAL EPIDURAL STEROID INJECTION - LEFT L4/5 Indications: [place] is referred by [employer] INSTALLERSajan Hernandez for treatment of Foraminal Stenosis with Left LE Symptoms Physician: William Bledsoe Total Fluoroscopy time (seconds): 9 Total sedation minutes: 10 Complications: none Procedure in detail & Post-procedure care: FINDINGS Foraminal Nerve Root Compression secondary to disc disease and facet hypertrophy DESCRIPTION OF PROCEDURE Following review of allergy and review of potential side effects and complications, including, but not necessarily limited to, infection, allergic reaction, local tissue breakdown, stroke, temporary or permanent nerve injury, paralysis, and possible , the patient indicated that the patient understood and agreed to proceed. An informed consent document was signed by the patient, witnessed by a nurse, and placed in the patient's chart. Additionally, other treatment options including medications, modalities, and physical therapy were reviewed with the patient. After review of previous anaesthesic history and IV conscious sedation the patient was deemed safe to proceed with today?s procedure with IV conscious sedation as ASA class II designation. Safety time-out was performed to confirm patient ID, procedure to be performed and site of procedure. IV sedation was accomplished with a combination of 2mg of Versed administered by the RN after DO order, titrated to patient comfort during the course of the procedure while the patient remained responsive to all verbal commands In the prone position following sterile prep and drape of the lumbar region, the left L4/5 posterior neuroforamen was identified fluoroscopically. The skin was anesthetized via a 25-gauge 1.5-inch needle with 1% lidocaine solution. At this point, a 25-gauge 3.5-inch spinal needle was atraumatically introduced and advanced under fluoroscopic guidance through the posterior left L4/5 neuroforamen to approximately the anterior aspect of the canal. Depth was confirmed on lateral view. Following negative aspiration, injection of approximately 1.5 cc of Isovue 200 under live fluoroscopy in the AP view confirmed excellent flow along the nerve root, into the epidural space without vascular or intrathecal uptake observed Radiological data, including multiple fluoroscopic views of the lumbosacral spine, reveal a spinal needle at the left L4/5 posterior neuroforamen. Subsequent views show flow of contrast material flowing superiorly and inferiorly along the nerve root confirming epidural flow. Subsequently, a test dose of 1.5 cc of 1% lidocaine solution was administered and patient was observed for two minutes for signs or symptoms of complications, including abdominal pain, shortness of breath, bilateral upper or lower extremity weakness, nausea and vomiting, prior to steroid injection. At this point, a total of 2cc or 10mg of dexamethasone and 6mg of betamethasone was injected without incident. The procedure tolerated the procedure well without signs or symptoms of complications prior to transfer to the recovery area continued monitoring without incident. The patient was then transferred to the recovery area where they were observed for an appropriate time after the injection. The patient reported a VAS score of 7 prior to the procedure and a post- procedure VAS of 0. POST OP INSTRUCTIONS The patient was provided a Pain Log to continue to record their response to the target-specific procedure prior to follow-up visit with their referring physician. Additionally, specific post-injection care instructions and a contact number to our office were provided if concerns arise regarding possible complications associated with the procedure are suspected.
== END 2024-11-25 11:07 | disposition home or self-care (01) ==
LOC: RAD 09:43
PROVIDERS: Family Provider Nurse Practitioner Family; PCP Nurse Practitioner Family; Referring Provider Physical Medicine & Rehabilitation; Visit Provider Physical Medicine & Rehabilitation
DX: M48.061 Spinal stenosis, lumbar region without neurogenic claudication (principal); M51.16 Intervertebral disc disorders with radiculopathy, lumbar region; M47.26 Other spondylosis with radiculopathy, lumbar region
CPT/HCPCS: 64483; 99152; J0702; J1100; J2250; J3490